=== PATIENT | female | born 1975 | race American Indian/Alaskan Native ===

== ENCOUNTER 2017-07-12 09:55 | Emergency (ER) | payer OTHER ==
[2017-07-12] MEDS ORDERED: ZOFRAN ODT PO ONE (11:10)
[2017-07-12] MEDS ORDERED: NACL 0.9% 1000 ML 1,000 ML IV ONE (11:10)
[2017-07-12] MEDS ORDERED: TORADOL IV ONE (11:10)
[2017-07-12] MEDS ORDERED: CATAPRES PO ONE (11:11)
--- NOTE | 2017-07-12 11:12 | Emergency Department Report ---
ED Shortness of Breath HPI - General Chief Complaint: Upper Respiratory Infection Stated Complaint: DAVID,COUGH Time Seen by Provider: 07/12/17 11:01 Source: patient, family Mode of arrival: Ambulatory Limitations: No Limitations - History of Present Illness Initial Comments: Patient presented to the emergency room with family member. She reports that she has been having ongoing cough and over the last couple days but says has been going on over the last 2 months. She said symptoms worsen over the last 2 days. She is complaining the chest pain and shortness of breath. Denies any vomiting but reports some nausea. Denies any swelling to legs. Patient is on Norplant control and recently traveled from [place]. Chest pain is 7 out of 10 a can and located to mid chest area. Her blood pressures elevated and she says she does not have a history of high blood pressure. Patient denies any medical history and reports she's had 3 in the past. She says she 's been taking [id number] medication with no relief of symptoms. She says that her significant other had bronchitis and maybe this where her symptoms are coming from but she says she doesn't know. Pain is worse with cough period. Denies any sore throat or headache. Denies any abdominal pain. Denies any urinary burning, frequency or urgency. Denies any back pain. MD Complaint: shortness of breath, cough, chest pain, pain with inspiration, anxiety Onset/Timin -: month(s) Severity: severe Pain Scale: 7 Quality: aching Consistency: intermittent Improves With: nothing Worsens With: coughing, inspiration Known History Of: other (none) Context: recent URI, recent travel, anxiety Associated Symptoms: chest pain, pain with inspiration, cough, nausea/vomiting Treatments Prior to Arrival: other ([id number] cough medicine) - Related Data Home Oxygen Therapy: No Previous Rx's Medication Instructions Recorded Last Taken Type ALBUTEROL Inhaler [ProAir HFA 2 puff IH QID PRN #1 inhalation 07/12/17 Unknown Rx Inhaler] Amoxicillin/K Clav Tab [Augmentin 1 tab PO Q12HR 10 Days #20 tab 07/12/17 Unknown Rx 875 mg] Naproxen [Naprosyn TAB] 500 mg PO BID PRN #12 tablet 07/12/17 Unknown Rx Ondansetron [Zofran TAB] 4 mg PO Q8HR PRN #12 tablet 07/12/17 Unknown Rx guaiFENesin/CODEINE [Robitussin AC] 5 ml PO Q8H PRN #75 ml 07/12/17 Unknown Rx methylPREDNISolone [Medrol Dose 4 mg PO QAM 6 Days #1 pack 07/12/17 Unknown Rx Teo] Allergies Allergy/AdvReac Type Severity Reaction Status Date / Time No Known Allergies Allergy Unverified 07/12/17 10:41 ED Review of Systems ROS: Stated complaint: DAVID,COUGH Other details as noted in HPI Comment: All other systems reviewed and negative Constitutional: no symptoms reported Eyes: denies: eye pain, eye discharge ENT: denies: ear pain, throat pain, dental pain, congestion Respiratory: cough, shortness of breath, SOB with exertion, SOB at rest. denies : orthopnea, stridor, wheezing Cardiovascular: chest pain. denies: palpitations, dyspnea on exertion, edema, syncope, paroxysmal nocturnal dyspnea Gastrointestinal: nausea. denies: abdominal pain, vomiting, diarrhea, constipation Genitourinary: denies: dysuria, hematuria Musculoskeletal: denies: back pain, joint swelling, arthralgia, myalgia Skin: denies: rash Neurological: denies: headache Psychiatric: anxiety (about health) ED Past Medical Hx - Past Medical History Previous Medical History?: No - Surgical History Past Surgical History?: Yes Additional Surgical History: c sect x 3 - Family History Family history: hypertension - Social History Smoking Status: Former Smoker Substance Use Type: Alcohol - Medications Home Medications: Home Medications Medication Instructions Recorded Confirmed Last Taken Type ALBUTEROL Inhaler [ProAir HFA 2 puff IH QID PRN #1 inhalation 07/12/17 Unknown Rx Inhaler] Amoxicillin/K Clav Tab [Augmentin 1 tab PO Q12HR 10 Days #20 tab 07/12/17 Unknown Rx 875 mg] Naproxen [Naprosyn TAB] 500 mg PO BID PRN #12 tablet 07/12/17 Unknown Rx Ondansetron [Zofran TAB] 4 mg PO Q8HR PRN #12 tablet 07/12/17 Unknown Rx guaiFENesin/CODEINE [Robitussin AC] 5 ml PO Q8H PRN #75 ml 07/12/17 Unknown Rx methylPREDNISolone [Medrol Dose 4 mg PO QAM 6 Days #1 pack 07/12/17 Unknown Rx Teo] ED Physical Exam - General Limitations: No Limitations General appearance: alert, in no apparent distress - Head Head exam: Present: atraumatic, normocephalic, normal inspection - Eye Eye exam: Present: normal appearance, PERRL, EOMI Pupils: Present: normal accommodation - ENT ENT exam: Present: normal exam, normal orophraynx, mucous membranes moist, TM's normal bilaterally, normal external ear exam - Neck Neck exam: Present: normal inspection, full ROM, other (no C-spine tenderness). Absent: tenderness, lymphadenopathy - Respiratory Respiratory exam: Present: normal lung sounds bilaterally. Absent: respiratory distress, chest wall tenderness, accessory muscle use - Cardiovascular Cardiovascular Exam: Present: regular rate, normal rhythm, normal heart sounds - GI/Abdominal GI/Abdominal exam: Present: soft, normal bowel sounds. Absent: distended, tenderness, guarding, rebound, rigid, organomegaly, mass, bruit, pulsatile mass , hernia - Extremities Exam Extremities exam: Present: normal inspection, full ROM, normal capillary refill , other (no clubbing, cyanosis or edema. + + Distal extremities and no neurovascular compromise.). Absent: tenderness, pedal edema, joint swelling, calf tenderness - Back Exam Back exam: Present: normal inspection, full ROM, other (ambulate without any difficulties). Absent: tenderness, CVA tenderness (R), CVA tenderness (L), muscle spasm, paraspinal tenderness, vertebral tenderness, rash noted - Neurological Exam Neurological exam: Present: alert, oriented X3, normal gait, reflexes normal. Absent: motor sensory deficit - Psychiatric Psychiatric exam: Present: normal affect, normal mood - Skin Skin exam: Present: warm, dry, intact, normal color. Absent: rash ED Course Vital Signs 07/12/17 07/12/17 10:41 13:51 Temperature 97.8 F 97.8 F Pulse Rate 94 H 82 Respiratory 20 16 Rate Blood Pressure 188/106 Blood Pressure 163/107 [Left] O2 Sat by Pulse 95 96 Oximetry - Reevaluation(s) Reevaluation #1: 07/12/17 13:01 Patient here with shortness of breath and chest pain with cough for several months. CBC stable, BMP stable except CO2 is elevated at 32, d-dimer elevated venous pH is within normal limits. Chest x-ray revealed patient with mild pulmonary venous congestion. Patient given 1 L normal saline, Toradol 30 mg IV , Zofran 4 mg ODT and Tylenol with codeine cough medicine 10 mL by mouth. Patient awaiting CT at bedtime to rule out PE. She is stable. Patient to receive nebulizer treatments. Patient also received clonidine 0.2 mg for elevated blood pressure without any history of high blood pressure. Reevaluation #2: 07/12/17 13:45 Patient is stable, pain is better. No shortness of breath at present. Salicylate and CTA results Reevaluation #3: 07/12/17 14:06 Patient received an hydralazine 20 mg IV and for recheck on blood pressure. Reevaluation #4: 07/12/17 14:55 Patient became very anxious prior to discharge and tearful. She was given Valium and reevaluate ED Medical Decision Making - Lab Data Result diagrams: 07/12/17 11:17 07/12/17 11:17 Vital Signs 07/12/17 07/12/17 10:41 13:51 Temperature 97.8 F 97.8 F Pulse Rate 94 H 82 Respiratory 20 16 Rate Blood Pressure 188/106 Blood Pressure 163/107 [Left] O2 Sat by Pulse 95 96 Oximetry - EKG Data -: EKG Interpreted by Me (EKG interpreted by attending physician) EKG shows normal: sinus rhythm (sinus rhythm at 93 beats per minutes) Rate: normal - EKG Data Interpretation: no acute changes, normal EKG - Radiology Data Radiology results: report reviewed Chest x-ray shows patient with mild pulmonary congestion/venous CTA chest reveals patient with pulmonary nodule. Prominent bilateral lower mediastinal lymph nodes may be reactive. No pulmonary embolus. No aortic aneurysm. No dissection. Treatment in but appears that this may represent atypical infective bronchiolitis: However, peripheral and septal thickening with groundglass opacities is atypical. Differential diagnosis includes lymphoma, leukemia, sarcoidosis or endocarditis - Medical Decision Making ED course: She is here with shortness of breath chest pain that she going on over the last couple days but reports cough and that's been chronic over the last couple months. Chest x-ray revealed mild pulmonary venous congestion. CT of the chest reveal patient with possibility of infective bronchiolitis but cannot rule out sarcoidosis, endocarditis, lymphoma/leukemia. She has prominent bilateral heel or mediastinal lymph nodes which may be reactive. No pulmonary embolism. Patient with stable labs except d-dimer was elevated which is why CTA was done. Diagnosis and treatment plan explained to patient along with follow-up and she voiced understanding. Patient was given nebulizer treatment in emergency room, Tylenol with codeine for cough, normal saline 1 L IV, Zofran 4 mg ODT, Toradol 30 mg IV for pain which helped her pain. Her blood pressure elevated 2 without any history of high blood pressure but patient said she felt anxious when she woke up this morning couldn't breathe. She was given clonidine 0.2 mg by mouth with still elevation in blood pressure therefore hydralazine 20 mg IV given and blood pressure is better. I discussed with her she will need to follow up with primary care physician but she does not have one but she does have access to primary care so I will refer her to outside medical and primary care outpatient medicine that's documentation spec today. I also discussed with her that she needs to follow-up with pulmonary doctor to evaluate and possible diagnostic testing for abnormal lung findings. Thus the patient is sometimes is difficult to get into primary care so I gave her flier for some outside [facility] along with phone number and address and told to call because it is easier to get in with them and they have family medicine and that she needs to take her blood pressure daily and call today or tomorrow to schedule an appointment to follow-up in 2-3 days and bring blood pressure readings with her for primary care to evaluate. She voiced understanding. Patient said that she is feeling better and discharged home with her significant other with prescription for Zofran, Augmentin to take yogurt, albuterol inhaler, Medrol Dosepak, guaifenesin with codeine and naproxen. Referred to laboratory section and radio section for details on radiology report and laboratory reports. Critical care attestation.: If time is entered above; I have spent that time in minutes in the direct care of this critically ill patient, excluding procedure time. ED Disposition Clinical Impression: Abnormal computed tomography angiography (CTA), Cough in adult, Chest pain of uncertain etiology, Shortness of breath, Elevated blood pressure reading without diagnosis of hypertension, Pulmonary nodule, Cardiomegaly Acute bronchitis Qualifiers: Bronchitis organism: other organism Qualified Code(s): J20.8 - Acute bronchitis due to other specified organisms Disposition: DC-01 TO HOME OR SELFCARE Is pt being admited?: No Does the pt Need Aspirin: No Condition: Stable Instructions: Acute Bronchitis (ED), Chest Pain (ED), Acute Cough (ED), Lymphadenopathy (ED), Pulmonary Nodules (ED), Hypertension (ED) Additional Instructions: Please keep a log of your blood pressure on a daily basis and take to primary care visit with here for evaluation. His CT scan showed abnormality as discussed and he will need to follow up with pulmonary doctor for further evaluation. Please refer to discharge instructions for referral to primary care doctor he can go to [facility] and/or Dr. Grzegorz Padilla who is primary care. Please follow-up with pcp that you can get appointment with for this week Follow-up with lens marker for further testing and on chest pain. Take antibiotic and other medication as prescribed Rest for the rest of the week and increasing fluid intake. Please do not take cough medicine while driving or operating heavy machinery as this medication causes drowsiness Take naproxen and as needed for pain. Prescriptions: ALBUTEROL Inhaler [ProAir HFA Inhaler] 2 puff IH QID PRN #1 inhalation PRN Reason: shortness of breath and cough Amoxicillin/K Clav Tab [Augmentin 875 mg] 1 tab PO Q12HR 10 Days #20 tab guaiFENesin/CODEINE [Robitussin AC] 5 ml PO Q8H PRN #75 ml PRN Reason: Cough methylPREDNISolone [Medrol Dose Teo] 4 mg PO QAM 6 Days #1 pack Naproxen [Naprosyn TAB] 500 mg PO BID PRN #12 tablet PRN Reason: Pain, Moderate (4-6) Ondansetron [Zofran TAB] 4 mg PO Q8HR PRN #12 tablet PRN Reason: Nausea And Vomiting Referrals: JERONIMO PADILLA MD [Staff Physician] - 2-3 Days [facility] [Outside] - 2-3 Days CASSANDRA RUBIN MD [Staff Physician] - 2-3 [facility] Days Forms: Accompanied Note, Work/School Release Form(ED)
[2017-07-12] MEDS ORDERED: TYLENOL/CODEINE PO ONE (11:22)
[2017-07-12 11:31] LABS: Basophils # (Auto) 0.1 K/mm3 (0.0-0.1); Basophils % (Auto) 0.6 % (0.0-1.8); Eosinophils # (Auto) 0.1 K/mm3 (0.0-0.4); Eosinophils % (Auto) 0.7 % (0.0-4.3); Hematocrit 42.8 % (30.3-42.9); Lymphocytes # (Auto) 2.6 K/mm3 (1.2-5.4); Lymphocytes % (Auto) 26.5 % (13.4-35.0); Mean Corpuscular HGB Conc 33 % (30-34); Mean Corpuscular Hemoglobin 30 pg (28-32); Mean Corpuscular Volume 92 fl (79-97); Monocytes # (Auto) 0.6 K/mm3 (0.0-0.8); Monocytes % (Auto) 6.6 % (0.0-7.3); Platelet Count 207 K/mm3 (140-440); Red Blood Count 4.66 M/mm3 (3.65-5.03); Red Cell Distribution Width 12.7 % (13.2-15.2)
[2017-07-12 12:06] LABS: Alanine Aminotransferase 17 units/L (7-56); BUN/Creatinine Ratio 10; Blood Urea Nitrogen 8 mg/dL (7-17); Calcium 9.8 mg/dL (8.4-10.2); Hemolysis Index 5
--- NOTE | 2017-07-12 12:08 | XRay Report ---
ROUTINE CHEST, TWO VIEWS: HISTORY: Shortness of breath. No comparison. Mild pulmonary venous congestion is identified. Heart size is at the upper limits of normal. The lungs are clear. No evidence for pneumonia, pleural effusion or pneumothorax. The bony structures are intact. IMPRESSION: Mild pulmonary venous congestion.
[2017-07-12 12:09] LABS: Bilirubin,Direct < 0.2 mg/dL (0-0.2)
[2017-07-12 13:03] LABS: Bilirubin,Urine NEG (Negative); Blood,Urine SM (Negative); Color,Urine Yellow (Yellow); Protein,Urine <15 mg/dL mg/dL (Negative); Urobilinogen,Urine < 2.0 mg/dL (<2.0); WBC,Urine < 1.0 /HPF (0.0-6.0)
[2017-07-12] MEDS ORDERED: XOPENEX IH ONE (13:14)
[2017-07-12] MEDS ORDERED: ATROVENT IH ONE (13:14)
--- NOTE | 2017-07-12 13:51 | Cat Scan Report ---
FINAL REPORT EXAM: CT ANGIO CHEST HISTORY: elevated d dimer with SOB and CP TECHNIQUE: CTA of chest with IV contrast. Coronal and sagittal and MIP reconstructed images provided. PRIORS: None currently available. FINDINGS: 5.7 pleural based pulmonary nodule along the right minor fissure on series 3:20. Scattered tree-in-bud infiltrates most particularly in the right upper lobe on series 3:75. Less notable tree-in-bud infiltrates in both lungs. Peripheral interseptal thickening with ground-glass opacities. No pneumothorax. No distinct consolidation. No effusion. No endobronchial lesions. No bronchial wall thickening. No bronchiectasis. No honeycombing. No centrilobular nodules. Main pulmonary arteries are unremarkable. No pulmonary embolus. No aortic aneurysm. No dissection. Major branch vessels are intact. Mild cardiomegaly. No pericardial effusion. Axillary regions are unremarkable. Prominent bilateral hilar and mediastinal lymph nodes which appears subcentimeter in short axis diameter. Residual or reactive thymic tissue in the substernal space. No substernal lesion identified. Images of the esophagus are unremarkable. No suspicious osseous lesions on this limited examination of the skeleton. Metastatic disease better evaluated with bone scan. IMPRESSION: Pulmonary nodule. Tree-in-bud opacities may represent atypical infective bronchiolitis; however, peripheral interseptal thickening with ground-glass opacities is atypical. Differential diagnosis includes lymphoma/leukemia, sarcoidosis, and endocarditis. Prominent bilateral hilar mediastinal lymph nodes may be reactive. No pulmonary embolus. No aortic aneurysm. No dissection.
[2017-07-12] MEDS ORDERED: APRESOLINE IV ONE (13:53)
[2017-07-12] MEDS ORDERED: VALIUM IV ONE (14:53)
[2017-07-12] MEDS ORDERED: ATIVAN IV ONE (15:18)
[2017-07-12 15:55] VITALS: BP 153/103
== END 2017-07-12 15:57 | disposition home or self-care (01) ==
LOC: ED 09:55
DX: J20.9 Acute bronchitis, unspecified (principal); I51.7 Cardiomegaly; R91.1 Solitary pulmonary nodule; Z87.891 Personal history of nicotine dependence
CPT/HCPCS: 36415; 71046; 71275; 80048; 80074; 81001; 82805; 84484; 84703; 85025; 85379; 93005; 93010; 94640; 96361; 96374; 96375; 99285; J0360; J1885; J2060; J3360; J7030; Q9967; Q0162

== ENCOUNTER 2017-10-04 11:11 | Emergency (ER) | payer SELFPAY ==
[2017-10-04 12:08] VITALS: BP 190/117
[2017-10-04 13:01] LABS: HCG Qualitative,Urine Negative (Negative)
--- NOTE | 2017-10-04 15:05 | XRay Report ---
CHEST 2 VIEWS INDICATION: Upper respiratory infection. COMPARISON: 07/12/2017 FINDINGS: PA and lateral chest radiographs again suggest mild cardiomegaly. Slightly prominent mei/possible pulmonary arterial hypertension with prominent bronchovascular markings centrally. No large pleural effusions or cephalization. Intact bones. CONCLUSION: Slight cardiomegaly and possible pulmonary arterial hypertension, as described. Other etiologies however, including sarcoidosis, again difficult to entirely exclude. Please correlate. Thank you for the opportunity to participate in this patient's care.
== END 2017-10-04 12:08 | disposition left against medical advice (07) ==
LOC: ED 11:11
DX: R07.0 Pain in throat (principal); R05 Cough; Z53.21 Procedure and treatment not carried out due to patient leaving prior to being seen by health care provider
CPT/HCPCS: 71046; 81025

== ENCOUNTER 2017-10-05 15:03 | Emergency (ER) | payer BC ==
[2017-10-05 17:31] VITALS: BP 183/113
[2017-10-05 18:02] LABS: Basophils % (Auto) 0.4 % (0.0-1.8); Eosinophils # (Auto) 0.1 K/mm3 (0.0-0.4); Eosinophils % (Auto) 0.7 % (0.0-4.3); Hematocrit 49.4 % (30.3-42.9); Hemoglobin 15.7 gm/dl (10.1-14.3); Lymphocytes # (Auto) 1.5 K/mm3 (1.2-5.4); Lymphocytes % (Auto) 19.9 % (13.4-35.0); Mean Corpuscular HGB Conc 32 % (30-34); Mean Corpuscular Hemoglobin 28 pg (28-32); Mean Corpuscular Volume 89 fl (79-97); Monocytes # (Auto) 0.6 K/mm3 (0.0-0.8); Platelet Count 214 K/mm3 (140-440); Red Blood Count 5.53 M/mm3 (3.65-5.03); Red Cell Distribution Width 13.6 % (13.2-15.2)
[2017-10-05 18:19] LABS: BUN/Creatinine Ratio 18; Blood Urea Nitrogen 11 mg/dL (7-17); Hemolysis Index 16
== END 2017-10-06 00:05 | disposition left against medical advice (07) ==
LOC: ED 15:03
DX: R07.9 Chest pain, unspecified (principal); R06.02 Shortness of breath; R50.9 Fever, unspecified; I10 Essential (primary) hypertension; Z87.891 Personal history of nicotine dependence; Z53.21 Procedure and treatment not carried out due to patient leaving prior to being seen by health care provider
CPT/HCPCS: 36415; 80048; 84484; 85025; 93005; 93010

== ENCOUNTER 2020-06-14 03:12 | Emergency (ER) | payer SELFPAY ==
[2020-06-14] MEDS ORDERED: IPRATROPIUM/ALBUTEROL SULFATE 3 ML AMPUL.NEB IH ONE (03:14)
[2020-06-14] MEDS ORDERED: dexAMETHasone 20 MG/5 ML VIAL IV ONE (03:16)
--- NOTE | 2020-06-14 03:21 | Event Note ---
ED Screening Note Date of service: 06/14/20 Time: 03:19 ED Screening Note: Patient is a 45-year-old female with history of asthma Who presents for cough shortness of breath with wheezing times today. States out of albuterol inhaler. Patient denies fevers or chills , there is no nausea vomiting This initial assessment/diagnostic orders/clinical plan/treatment(s) is/are subject to change based on patients health status, clinical progression and re- assessment by fellow clinical providers in the ED. Further treatment and workup at subsequent clinical providers discretion. Patient/guardian urged not to elope from the ED as their condition may be serious if not clinically assessed and man aged. Initial orders include: CBC, CMP UA,
[2020-06-14] MEDS: IPRATROPIUM/ALBUTEROL SULFATE 3 ML AMPUL.NEB IH ONE (03:23)
--- NOTE | 2020-06-14 03:48 | XRay Report ---
CHEST 2 VIEWS INDICATION / CLINICAL INFORMATION: asthma. COMPARISON: 10/04/2017 FINDINGS: SUPPORT DEVICES: None. HEART / MEDIASTINUM: Stable mild cardiomegaly. LUNGS / PLEURA: No significant pulmonary or pleural abnormality. No pneumothorax. ADDITIONAL FINDINGS: No significant additional findings. IMPRESSION: 1. No acute findings. 2. Stable mild cardiomegaly. Signer Name: Ean Rosales MD Signed: 06/14/2020 3:43 AM Workstation Name: [employer]
--- NOTE | 2020-06-14 05:05 | Emergency Department Report ---
ED General Adult HPI - General Chief complaint: Adult Asthma Stated complaint: ASTHMA ATTACK Time Seen by Provider: 06/14/20 04:53 Source: patient Mode of arrival: Ambulatory Limitations: No Limitations - History of Present Illness Initial comments: Patient is a 45-year-old female with history of asthma Who presents for cough shortness of breath with wheezing times today. States out of albuterol inhaler. Patient denies fevers or chills , there is no nausea vomiting Severity scale (0 -10): 0 - Related Data Previous Rx's Medication Instructions Recorded Last Taken Type Albuterol Mdi (or & Nicu Only) 2 puff IH QID PRN #1 inhalation 07/12/17 Unknown Rx [ProAir HFA Inhaler] Amoxicillin/K Clav Tab [Augmentin 1 tab PO Q12HR 10 Days #20 tab 07/12/17 Unknown Rx 875 mg] Naproxen [Naprosyn TAB] 500 mg PO BID PRN #12 tablet 07/12/17 Unknown Rx Ondansetron [Zofran TAB] 4 mg PO Q8HR PRN #12 tablet 07/12/17 Unknown Rx guaiFENesin/CODEINE [Robitussin AC] 5 ml PO Q8H PRN #75 ml 07/12/17 Unknown Rx methylPREDNISolone [Medrol Dose 4 mg PO QAM 6 Days #1 pack 07/12/17 Unknown Rx Toe] Albuterol Mdi (or & Nicu Only) 2 puff IH QID PRN #8.5 gram 06/14/20 Unknown Rx [ProAir HFA Inhaler] Azithromycin 500 mg PO DAILY #5 tablet 06/14/20 Unknown Rx Ibuprofen [Motrin 800 MG tab] 800 mg PO Q8HR PRN #30 tablet 06/14/20 Unknown Rx dexAMETHasone [Decadron] 4 mg PO BID 2 Days #4 tablet 06/14/20 Unknown Rx Allergies Allergy/AdvReac Type Severity Reaction Status Date / Time No Known Allergies Allergy Unverified 07/12/17 10:41 ED Review of Systems ROS: Stated complaint: ASTHMA ATTACK Other details as noted in HPI Constitutional: denies: chills, fever Eyes: denies: eye pain, eye discharge, vision change ENT: congestion Respiratory: cough, shortness of breath, wheezing Cardiovascular: denies: chest pain, palpitations Endocrine: no symptoms reported Gastrointestinal: denies: abdominal pain, nausea, vomiting, diarrhea Genitourinary: denies: urgency, dysuria, discharge Musculoskeletal: denies: back pain, joint swelling, arthralgia Skin: denies: rash, lesions Neurological: denies: headache, weakness, paresthesias Psychiatric: denies: anxiety, depression Hematological/Lymphatic: denies: easy bleeding, easy bruising ED Past Medical Hx - Past Medical History Previous Medical History?: Yes Hx Hypertension: Yes Hx Asthma: Yes Additional medical history: bronchitis. Chronic Cough - Surgical History Past Surgical History?: Yes Additional Surgical History: c sect x 3 - Social History Smoking Status: Never Smoker Substance Use Type: None - Medications Home Medications: Home Medications Medication Instructions Recorded Confirmed Last Taken Type Albuterol Mdi (or & Nicu Only) 2 puff IH QID PRN #1 inhalation 07/12/17 Unknown Rx [ProAir HFA Inhaler] Amoxicillin/K Clav Tab [Augmentin 1 tab PO Q12HR 10 Days #20 tab 07/12/17 Unknown Rx 875 mg] Naproxen [Naprosyn TAB] 500 mg PO BID PRN #12 tablet 07/12/17 Unknown Rx Ondansetron [Zofran TAB] 4 mg PO Q8HR PRN #12 tablet 07/12/17 Unknown Rx guaiFENesin/CODEINE [Robitussin AC] 5 ml PO Q8H PRN #75 ml 07/12/17 Unknown Rx methylPREDNISolone [Medrol Dose 4 mg PO QAM 6 Days #1 pack 07/12/17 Unknown Rx Teo] Albuterol Mdi (or & Nicu Only) 2 puff IH QID PRN #8.5 gram 06/14/20 Unknown Rx [ProAir HFA Inhaler] Azithromycin 500 mg PO DAILY #5 tablet 06/14/20 Unknown Rx Ibuprofen [Motrin 800 MG tab] 800 mg PO Q8HR PRN #30 tablet 06/14/20 Unknown Rx dexAMETHasone [Decadron] 4 mg PO BID 2 Days #4 tablet 06/14/20 Unknown Rx ED Physical Exam - General Limitations: No Limitations General appearance: alert, in no apparent distress - Head Head exam: Present: atraumatic, normocephalic - Eye Eye exam: Present: EOMI Pupils: Present: normal accommodation - ENT ENT exam: Present: normal orophraynx, mucous membranes moist, TM's normal bilaterally, normal external ear exam - Neck Neck exam: Present: normal inspection, full ROM. Absent: tenderness, lymphadenopathy, thyromegaly - Respiratory Respiratory exam: Present: normal lung sounds bilaterally, wheezes. Absent: respiratory distress, rales, rhonchi, stridor, chest wall tenderness - Cardiovascular Cardiovascular Exam: Present: regular rate, normal rhythm, normal heart sounds. Absent: systolic murmur, diastolic murmur, rubs, gallop - GI/Abdominal GI/Abdominal exam: Present: soft, normal bowel sounds. Absent: distended, tenderness - Rectal Rectal exam: Present: deferred - Extremities Exam Extremities exam: Present: normal inspection, full ROM. Absent: tenderness - Back Exam Back exam: Present: normal inspection, full ROM. Absent: tenderness - Neurological Exam Neurological exam: Present: alert, oriented X3, CN II-XII intact, normal gait - Psychiatric Psychiatric exam: Present: normal affect, normal mood - Skin Skin exam: Present: warm, dry, intact, normal color. Absent: rash ED Course Vital Signs 06/14/20 06/14/20 03:24 03:25 Temperature 98.3 F Pulse Rate 115 H Pulse Rate [ 100 H Bilateral Throughout] Respiratory 26 H Rate Respiratory 22 Rate [Bilateral Throughout] Blood Pressure 186/100 [Left] O2 Sat by Pulse 100 Oximetry ED Medical Decision Making - Radiology Data Radiology results: report reviewed, image reviewed no infiltrates no opacities, no acute findings , stable cardiomegally - Medical Decision Making X-ray negative for infiltrates no opacities no acute findings stable cardiomegaly, wheezing his wheezing is resolved with medications given in ED. Patient ambulated to ED without increased symptoms and no wheezing at this time. Plan DC to home with prescriptions including antibiotics steroids albuterol inhaler , patient will follow-up with PCP in 2 to 3 days. Patient will return to ED should symptoms worsen. Patient verbalized agreement and understanding with discharge plan. Patient will be DC'd home in stable condition at this time. Critical care attestation.: If time is entered above; I have spent that time in minutes in the direct care of this critically ill patient, excluding procedure time. ED Disposition Clinical Impression: Asthma Qualifiers: Asthma severity: moderate Asthma persistence: unspecified Asthma complication type: with acute exacerbation Qualified Code(s): J45.901 - Unspecified asthma with (acute) exacerbation Disposition: DC-01 TO HOME OR SELFCARE Is pt being admited?: No Does the pt Need Aspirin: No Condition: Stable Instructions: Asthma (ED) Prescriptions: Azithromycin 500 mg PO DAILY #5 tablet dexAMETHasone [Decadron] 4 mg PO BID 2 Days #4 tablet Ibuprofen [Motrin 800 MG tab] 800 mg PO Q8HR PRN #30 tablet PRN Reason: pain Albuterol Mdi (or & Nicu Only) [ProAir HFA Inhaler] 2 puff IH QID PRN #8.5 gram PRN Reason: Shortness Of Breath Referrals: JH COX MD [Staff Physician] - 3-5 Days Forms: Work/School Release Form(ED)
[2020-06-14 05:34] VITALS: BP 138/88
== END 2020-06-14 05:34 | disposition home or self-care (01) ==
LOC: ED 03:12
DX: J45.909 Unspecified asthma, uncomplicated (principal); I10 Essential (primary) hypertension; Z79.899 Other long term (current) drug therapy
CPT/HCPCS: 71046; 94640; 96374; 99283; J1100; 94644

== ENCOUNTER 2020-10-04 10:11 | Emergency (ER) | payer SELFPAY ==
[2020-10-04] MEDS ORDERED: hydrALAZINE 25 MG TAB PO ONE (11:00)
--- NOTE | 2020-10-04 11:46 | XRay Report ---
CHEST 2 VIEWS INDICATION / CLINICAL INFORMATION: Chest Pain. COMPARISON: 06/14/2020 FINDINGS: SUPPORT DEVICES: None. HEART / MEDIASTINUM: Stable mild cardiomegaly. LUNGS / PLEURA: No significant pulmonary or pleural abnormality. No pneumothorax. ADDITIONAL FINDINGS: No significant additional findings. IMPRESSION: 1. No acute findings. Signer Name: Ean Rosales MD Signed: 10/04/2020 11:42 AM Workstation Name: [id number]
--- NOTE | 2020-10-04 11:54 | Emergency Department Report ---
ED Shortness of Breath HPI - General Chief Complaint: Adult Asthma Stated Complaint: ASTHMA Time Seen by Provider: 10/04/20 10:39 Source: patient Mode of arrival: Ambulatory Limitations: No Limitations - History of Present Illness Initial Comments: Patient is a 45-year-old female presents emergency room with complaints of shortness of breath for the last 2 weeks. She states that she has orthopnea and exertional shortness of breath. Patient states that she traveled to [place] 3 weeks ago and drove approximately 9 hours. She states that she has a history of asthma and uses an albuterol inhaler. She states that she has an appointment with a new multi disciplined language analyst in 3 weeks. She states she has an occasional dry cough. She denies any fever, nausea, vomiting, diarrhea, leg swelling. She states that she does feel chest pressure and feels like someone is sitting/squeezing her chest. She also has a history of bronchitis. She is a former smoker. Patient states that she has been told she has elevated blood pressure in the past but is not on any blood pressure medication. No allergies to medications. - Related Data Previous Rx's Medication Instructions Recorded Last Taken Type Albuterol Mdi (or & Nicu Only) 2 puff IH QID PRN #1 inhalation 07/12/17 Unknown Rx [ProAir HFA Inhaler] Amoxicillin/K Clav Tab [Augmentin 1 tab PO Q12HR 10 Days #20 tab 07/12/17 Unknown Rx 875 mg] Naproxen [Naprosyn TAB] 500 mg PO BID PRN #12 tablet 07/12/17 Unknown Rx Ondansetron [Zofran TAB] 4 mg PO Q8HR PRN #12 tablet 07/12/17 Unknown Rx guaiFENesin/CODEINE [Robitussin AC] 5 ml PO Q8H PRN #75 ml 07/12/17 Unknown Rx methylPREDNISolone [Medrol Dose 4 mg PO QAM 6 Days #1 pack 07/12/17 Unknown Rx Teo] Albuterol Mdi (or & Nicu Only) 2 puff IH QID PRN #8.5 gram 06/14/20 Unknown Rx [ProAir HFA Inhaler] Azithromycin 500 mg PO DAILY #5 tablet 06/14/20 Unknown Rx Ibuprofen [Motrin 800 MG tab] 800 mg PO Q8HR PRN #30 tablet 06/14/20 Unknown Rx dexAMETHasone [Decadron] 4 mg PO BID 2 Days #4 tablet 06/14/20 Unknown Rx Albuterol Sulfate [Proventil Hfa] 1 - 2 puff IH TID PRN #1 hfa.aer.ad 10/04/20 Unknown Rx Azithromycin [Zithromax TAB] 250 mg PO QDAY 5 Days #6 tablet 10/04/20 Unknown Rx Benzonatate [Tessalon Perles] 100 mg PO Q8HR PRN #12 capsule 10/04/20 Unknown Rx Prednisone [predniSONE 10 mg 10 mg PO .TAPER #1 tab.ds.pk 10/04/20 Unknown Rx (6-Day Pack, 21 Tabs)] Allergies Allergy/AdvReac Type Severity Reaction Status Date / Time No Known Allergies Allergy Unverified 07/12/17 10:41 ED Review of Systems ROS: Stated complaint: ASTHMA Other details as noted in HPI Comment: All other systems reviewed and negative ED Past Medical Hx - Past Medical History Previous Medical History?: Yes Hx Hypertension: Yes Hx Asthma: Yes Additional medical history: bronchitis. Chronic Cough - Surgical History Past Surgical History?: Yes Additional Surgical History: c sect x 3 - Social History Smoking Status: Never Smoker Substance Use Type: None - Medications Home Medications: Home Medications Medication Instructions Recorded Confirmed Last Taken Type Albuterol Mdi (or & Nicu Only) 2 puff IH QID PRN #1 inhalation 07/12/17 Unknown Rx [ProAir HFA Inhaler] Amoxicillin/K Clav Tab [Augmentin 1 tab PO Q12HR 10 Days #20 tab 07/12/17 Unknown Rx 875 mg] Naproxen [Naprosyn TAB] 500 mg PO BID PRN #12 tablet 07/12/17 Unknown Rx Ondansetron [Zofran TAB] 4 mg PO Q8HR PRN #12 tablet 07/12/17 Unknown Rx guaiFENesin/CODEINE [Robitussin AC] 5 ml PO Q8H PRN #75 ml 07/12/17 Unknown Rx methylPREDNISolone [Medrol Dose 4 mg PO QAM 6 Days #1 pack 07/12/17 Unknown Rx Teo] Albuterol Mdi (or & Nicu Only) 2 puff IH QID PRN #8.5 gram 06/14/20 Unknown Rx [ProAir HFA Inhaler] Azithromycin 500 mg PO DAILY #5 tablet 06/14/20 Unknown Rx Ibuprofen [Motrin 800 MG tab] 800 mg PO Q8HR PRN #30 tablet 06/14/20 Unknown Rx dexAMETHasone [Decadron] 4 mg PO BID 2 Days #4 tablet 06/14/20 Unknown Rx Albuterol Sulfate [Proventil Hfa] 1 - 2 puff IH TID PRN #1 hfa.aer.ad 10/04/20 Unknown Rx Azithromycin [Zithromax TAB] 250 mg PO QDAY 5 Days #6 tablet 10/04/20 Unknown Rx Benzonatate [Tessalon Perles] 100 mg PO Q8HR PRN #12 capsule 10/04/20 Unknown Rx Prednisone [predniSONE 10 mg 10 mg PO .TAPER #1 tab.ds.pk 10/04/20 Unknown Rx (6-Day Pack, 21 Tabs)] ED Physical Exam - General Limitations: No Limitations General appearance: alert, in no apparent distress - Head Head exam: Present: atraumatic, normocephalic - Eye Eye exam: Present: normal appearance - ENT ENT exam: Present: mucous membranes moist - Respiratory Respiratory exam: Present: normal lung sounds bilaterally, rales (fine crackles bilaterally). Absent: respiratory distress, wheezes, rhonchi, stridor, chest wall tenderness, accessory muscle use, decreased breath sounds, prolonged expiratory - Cardiovascular Cardiovascular Exam: Present: regular rate, normal rhythm, normal heart sounds. Absent: systolic murmur, diastolic murmur, rubs, gallop - Neurological Exam Neurological exam: Present: alert, oriented X3 - Psychiatric Psychiatric exam: Present: normal affect, normal mood - Skin Skin exam: Present: warm, dry, intact ED Course Vital Signs 10/04/20 10/04/20 10/04/20 10:18 11:41 16:27 Temperature 98.2 F 98.2 F Pulse Rate 106 H 95 H 86 Respiratory 20 16 Rate Blood Pressure 200/121 172/106 Blood Pressure 164/88 [Left] O2 Sat by Pulse 96 99 Oximetry ED Medical Decision Making - Lab Data Result diagrams: 10/04/20 11:45 10/04/20 11:45 Lab Results 10/04/20 10/04/20 10/04/20 Range/Units 11:45 11:45 11:45 WBC 9.0 (4.5-11.0) K/mm3 RBC 5.08 H (3.65-5.03) M/mm3 Hgb 15.1 H (10.1-14.3) gm/dl Hct 46.2 H (30.3-42.9) % MCV 91 (79-97) fl MCH 30 (28-32) pg MCHC 33 (30-34) % RDW 13.3 (13.2-15.2) % Plt Count 217 (140-440) K/mm3 Lymph % (Auto) 23.2 (13.4-35.0) % [place] % (Auto) 6.1 (0.0-7.3) % Eos % (Auto) 0.7 (0.0-4.3) % Baso % (Auto) 0.7 (0.0-1.8) % Lymph # (Auto) 2.1 (1.2-5.4) K/mm3 [place] # (Auto) 0.6 (0.0-0.8) K/mm3 Eos # (Auto) 0.1 (0.0-0.4) K/mm3 Baso # (Auto) 0.1 (0.0-0.1) K/mm3 Seg Neutrophils % 69.3 (40.0-70.0) % Seg Neutrophils # 6.3 (1.8-7.7) K/mm3 PT 12.9 (12.2-14.9) Sec. INR 0.91 (0.87-1.13) APTT 28.1 (24.2-36.6) Sec. D-Dimer 477.43 H (0-234) ng/mlDDU Sodium 138 (137-145) mmol/L Potassium 4.0 (3.6-5.0) mmol/L Chloride 106.1 (98-107) mmol/L Carbon Dioxide 20 L (22-30) mmol/L Anion Gap 16 mmol/L BUN 8 (7-17) mg/dL Creatinine 0.6 (0.6-1.2) mg/dL Estimated GFR > 60 ml/min BUN/Creatinine Ratio 13 % Glucose 89 (65-100) mg/dL Calcium 9.5 (8.4-10.2) mg/dL Total Bilirubin 0.80 (0.1-1.2) mg/dL AST 26 (5-40) units/L ALT 25 (7-56) units/L Alkaline Phosphatase 73 (35-129) units/L Troponin T < 0.010 (0.00-0.029) ng/mL NT-Pro-B Natriuret Pep 683.8 H (0-450) pg/mL Total Protein 7.4 (6.3-8.2) g/dL Albumin 4.0 (3.9-5) g/dL Albumin/Globulin Ratio 1.2 % HCG, Qual (Negative) 10/04/20 Range/Units 11:45 WBC (4.5-11.0) K/mm3 RBC (3.65-5.03) M/mm3 Hgb (10.1-14.3) gm/dl Hct (30.3-42.9) % MCV (79-97) fl MCH (28-32) pg MCHC (30-34) % RDW (13.2-15.2) % Plt Count (140-440) K/mm3 Lymph % (Auto) (13.4-35.0) % [place] % (Auto) (0.0-7.3) % Eos % (Auto) (0.0-4.3) % Baso % (Auto) (0.0-1.8) % Lymph # (Auto) (1.2-5.4) K/mm3 [place] # (Auto) (0.0-0.8) K/mm3 Eos # (Auto) (0.0-0.4) K/mm3 Baso # (Auto) (0.0-0.1) K/mm3 Seg Neutrophils % (40.0-70.0) % Seg Neutrophils # (1.8-7.7) K/mm3 PT (12.2-14.9) Sec. INR (0.87-1.13) APTT (24.2-36.6) Sec. D-Dimer (0-234) ng/mlDDU Sodium (137-145) mmol/L Potassium (3.6-5.0) mmol/L Chloride (98-107) mmol/L Carbon Dioxide (22-30) mmol/L Anion Gap mmol/L BUN (7-17) mg/dL Creatinine (0.6-1.2) mg/dL Estimated GFR ml/min BUN/Creatinine Ratio % Glucose (65-100) mg/dL Calcium (8.4-10.2) mg/dL Total Bilirubin (0.1-1.2) mg/dL AST (5-40) units/L ALT (7-56) units/L Alkaline Phosphatase (35-129) units/L Troponin T (0.00-0.029) ng/mL NT-Pro-B Natriuret Pep (0-450) pg/mL Total Protein (6.3-8.2) g/dL Albumin (3.9-5) g/dL Albumin/Globulin Ratio % HCG, Qual Negative (Negative) Vital Signs 10/04/20 10/04/20 10/04/20 10:18 11:41 16:27 Temperature 98.2 F 98.2 F Pulse Rate 106 H 95 H 86 Respiratory 20 16 Rate Blood Pressure 200/121 172/106 Blood Pressure 164/88 [Left] O2 Sat by Pulse 96 99 Oximetry - EKG Data EKG shows normal: sinus rhythm, axis, intervals, QRS complexes Rate: tachycardia (103) - EKG Data 10/04/20 15:14 T wave inversion lateral leads No STEMI - Radiology Data Radiology results: report reviewed Ordering Physician: TRACEE PEREA Date of Service: 10/04/20 Procedure(s): XR chest routine 2V Accession Number(s): [id number] cc: TRACEE PEREA Fluoro Time In Minutes: CHEST 2 VIEWS INDICATION / CLINICAL INFORMATION: Chest Pain. COMPARISON: 06/14/2020 FINDINGS: SUPPORT DEVICES: None. HEART / MEDIASTINUM: Stable mild cardiomegaly. LUNGS / PLEURA: No significant pulmonary or pleural abnormality. No p neumothorax. ADDITIONAL FINDINGS: No significant additional findings. IMPRESSION: 1. No acute findings. Signer Name: Ean Rosales MD Signed: 10/04/2020 11:42 AM Workstation Name: [id number] Transcribed By: JAXON Dictated By: Ean Rosales MD Electronically Authenticated By: Ean Rosales MD Signed Date/Time: 10/04/20 1142 DD/ 1141 TD/TT: Print Ordering Physician: TRACEE PREEA Date of Service: 10/04/20 Procedure(s): CT angio chest Accession Number(s): [id number] cc: TRACEE PEREA CTA CHEST WITH IV CONTRAST INDICATION: Chest pain, shortness of breath, elevated d-dimer. TECHNIQUE: Axial CT images were obtained through the chest after injection of 100 mL Omnipaque 350 IV contrast. 3 plane MIP reconstructions were produced. All CT scans at this location are performed using CT dose reduction for ALARA by means of automated exposure control. COMPARISON: None available. FINDINGS: Pulmonary Arteries: No pulmonary emboli. Lungs: There are a few patchy areas of groundglass opacity in the right middle lobe, right lower lobe, and left upper lobe. There is mild emphysema. Trachea and Bronchi: No significant abnormality. Heart and Pericardium: No significant abnormality. Vasculature: No significant abnormality. Lymphatics: No lymphadenopathy. Additional Findings: None. Upper Abdomen: No acute findings. Skeletal Structures: No acute findings or aggressive bone lesions. IMPRESSION: 1. No CT evidence for pulmonary embolism. 2. Patchy areas of groundglass opacity in both lungs likely indicates multifocal infectious or inflammatory process. Signer Name: Ean Rosales MD Signed: 10/04/2020 2:24 PM Workstation Name: [id number] Transcribed By: JAXON Dictated By: Ean Rosales MD Electronically Authenticated By: Ean Rosales MD Signed Date/Time: 10/04/20 142 DD/ 21 TD/TT: Print Cancel - Medical Decision Making Patient is a 45-year-old female presents emergency room with complaints of shortness of breath for the last 2 weeks. She states that she has orthopnea and exertional shortness of breath. Patient states that she traveled to [place] 3 weeks ago and drove approximately 9 hours. She states that she has a history of asthma and uses an albuterol inhaler. She states that she has an appointment with a new multi disciplined language analyst in 3 weeks. She states she has an occasional dry cough. She denies any fever, nausea, vomiting, diarrhea, leg swelling. She states that she does feel chest pressure and feels like someone is sitting/squeezing her chest. She also has a history of bronchitis. She is a former smoker. Patient states that she has been told she has elevated blood pressure in the past but is not on any blood pressure medication. No allergies to medications. Initial vitals with tachycardia and significantly elevated blood pressure which improved upon repeat. On exam patient has fine crackles bilaterally. Labs significant for elevated D-dimer and elevated BNP. EKG shows nonspecific T wave inversion, no STEMI. Troponin is negative. CXR: 1. No acute findings. CTA chest: 1. No CT evidence for pulmonary embolism. 2. Patchy areas of groundglass opacity in both lungs likely indicates multifocal infectious or inflammatory process. CT findings could be related to Covid versus COPD versus mild CHF. Patient is in no acute distress, she has no hypoxia. Patient is feeling much better upon reexamination. Discussed all results with patient and answer questions. Discussed the importance of pulmonology, primary care, cardiology follow-up. Discussed return precautions with patient. Discussed case with Dr. Alejandra Car, ER attending who advised to place patient on steroids, antibiotics, and blood pressure medication and discharge with outpatient follow up. Advised patient Please take medication as prescribed. Please keep your appointment with your multi disciplined language analyst. Please follow-up with a primary care doctor. Follow-up with a customer operations manager. Return to emergency room for new or worsening symptoms. Critical care attestation.: If time is entered above; I have spent that time in minutes in the direct care of this critically ill patient, excluding procedure time. ED Disposition Clinical Impression: SOB (shortness of breath), Opacities of both lungs present on chest x-ray, Elevated brain natriuretic peptide (BNP) level, Hypertensive urgency Emphysema of lung Qualifiers: Emphysema type: unspecified Qualified Code(s): J43.9 - Emphysema, unspecified Disposition: DC-01 TO HOME OR SELFCARE Is pt being admited?: No Does the pt Need Aspirin: No Condition: Stable Instructions: Chronic Obstructive Pulmonary Disease (ED) Additional Instructions: Please take medication as prescribed. Please keep your appointment with your multi disciplined language analyst. Please follow-up with a primary care doctor. Follow-up with a c ardiologist. Return to emergency room for new or worsening symptoms. Prescriptions: Prednisone [predniSONE 10 mg (6-Day Pack, 21 Tabs)] 10 mg PO .TAPER #1 tab.ds.pk Albuterol Sulfate [Proventil Hfa] 1 - 2 puff IH TID PRN #1 hfa.aer.ad PRN Reason: shortness of breath/wheezing Benzonatate [Tessalon Perles] 100 mg PO Q8HR PRN #12 capsule PRN Reason: cough Azithromycin [Zithromax TAB] 250 mg PO QDAY 5 Days #6 tablet Referrals: AYLEEN HAMLIN MD [Staff Physician] - 2-3 Days [facility] [Provider Group] - 2-3 Days JH COX MD [Staff Physician] - 2-3 Days SUBHASH BUTLER [Staff Physician] - 2-3 Days (cardiology) Time of Disposition: 15:06 Print Language: TUVALU[place]
[2020-10-04 12:15] LABS: Basophils # (Auto) 0.1 K/mm3 (0.0-0.1); Basophils % (Auto) 0.7 % (0.0-1.8); Eosinophils # (Auto) 0.1 K/mm3 (0.0-0.4); Eosinophils % (Auto) 0.7 % (0.0-4.3); Hematocrit 46.2 % (30.3-42.9); Hemoglobin 15.1 gm/dl (10.1-14.3); Lymphocytes # (Auto) 2.1 K/mm3 (1.2-5.4); Lymphocytes % (Auto) 23.2 % (13.4-35.0); Mean Corpuscular HGB Conc 33 % (30-34); Mean Corpuscular Volume 91 fl (79-97); Monocytes # (Auto) 0.6 K/mm3 (0.0-0.8); Monocytes % (Auto) 6.1 % (0.0-7.3); Platelet Count 217 K/mm3 (140-440); Red Blood Count 5.08 M/mm3 (3.65-5.03); Red Cell Distribution Width 13.3 % (13.2-15.2)
[2020-10-04 12:23] LABS: INR 0.91 (0.87-1.13)
[2020-10-04 12:24] LABS: Partial Thromboplastin Time 28.1 Sec. (24.2-36.6)
[2020-10-04 12:42] LABS: Alanine Aminotransferase 25 units/L (7-56); Blood Urea Nitrogen 8 mg/dL (7-17); Calcium 9.5 mg/dL (8.4-10.2); Hemolysis Index 29
[2020-10-04 12:43] LABS: BUN/Creatinine Ratio 13
--- NOTE | 2020-10-04 14:28 | Cat Scan Report ---
CTA CHEST WITH IV CONTRAST INDICATION: Chest pain, shortness of breath, elevated d-dimer. TECHNIQUE: Axial CT images were obtained through the chest after injection of 100 mL Omnipaque 350 IV contrast. 3 plane MIP reconstructions were produced. All CT scans at this location are performed using CT dose reduction for ALARA by means of automated exposure control. COMPARISON: None available. FINDINGS: Pulmonary Arteries: No pulmonary emboli. Lungs: There are a few patchy areas of groundglass opacity in the right middle lobe, right lower lobe , and left upper lobe. There is mild emphysema. Trachea and Bronchi: No significant abnormality. Heart and Pericardium: No significant abnormality. Vasculature: No significant abnormality. Lymphatics: No lymphadenopathy. Additional Findings: None. Upper Abdomen: No acute findings. Skeletal Structures: No acute findings or aggressive bone lesions. IMPRESSION: 1. No CT evidence for pulmonary embolism. 2. Patchy areas of groundglass opacity in both lungs likely indicates multifocal infectious or inflam matory process. Signer Name: Ean Rosales MD Signed: 10/04/2020 2:24 PM Workstation Name: [id number]
[2020-10-04] MEDS ORDERED: FUROSEMIDE 20 MG TAB PO ONE (14:33)
[2020-10-04] MEDS ORDERED: POTASSIUM CHLORIDE ER 20 MEQ TAB PO ONE (15:08)
[2020-10-04 16:29] VITALS: BP 164/88
--- NOTE | 2020-10-09 14:17 | Electrocardiograph Report ---
[facility] Test Date: 2020-10-04 Test Time: 13:14:58 Pat Name: HARESH MCKENZIE Department: Room: Gender: F [employer] Supervisor: MARTÍN : 1975 Requested By: DWAINE LOVETT Order Number: [id number] Reading MD: Zachariah Sarmiento Measurements Intervals [place] Rate: 103 P: 141 OR: 159 QRS: 16 QRSD: 86 T: -58 QT: 344 QTc: 452 Interpretive Statements Sinus tachycardia Probable left atrial enlargement Nonspecific T abnormalities, lateral leads No previous ECG available for comparison Electronically Signed On 10-09-2020 14:17:09 EDT by Zachariah Sarmiento
== END 2020-10-04 16:00 | disposition home or self-care (01) ==
LOC: ED 10:11
DX: J43.9 Emphysema, unspecified (principal); I16.0 Hypertensive urgency; R06.02 Shortness of breath; R91.8 Other nonspecific abnormal finding of lung field; R79.89 Other specified abnormal findings of blood chemistry; I10 Essential (primary) hypertension; Z79.899 Other long term (current) drug therapy; Z98.890 Other specified postprocedural states
CPT/HCPCS: 36415; 71046; 71275; 80053; 83880; 84484; 84703; 85025; 85379; 85610; 85730; 99284; Q9967; 93005

== ENCOUNTER 2021-09-06 18:30 | Emergency (ER) | payer SELFPAY ==
[2021-09-06] MEDS ORDERED: ALBUTEROL 2.5 MG/3 ML NEBU IH ONE ×3 (18:45→18:59)
[2021-09-06] MEDS ORDERED: IPRATROPIUM 0.02% NEBU 2.5 ML IH ONE ×3 (18:45→18:59)
[2021-09-06] MEDS ORDERED: methylPREDNISolone Sod Succinate 125 MG/2 ML INJ IV ONE (18:59)
--- NOTE | 2021-09-06 19:57 | XRay Report ---
XR chest routine 2V INDICATION / CLINICAL INFORMATION: COUGH, ASTHMA. COMPARISON: Radiograph from 10/04/2020. FINDINGS: SUPPORT DEVICES: None. HEART /PULMONARY VASCULATURE: Heart is enlarged. Pulmonary vasculature is mildly congested. LUNGS / PLEURA: There are increased diffuse interstitial opacities throughout the lungs. No focal air space consolidation. No sizable pleural effusion. No pneumothorax. ADDITIONAL FINDINGS: No significant additional findings. IMPRESSION: Diffuse increased interstitial opacities throughout the lungs, may reflect edema or interstitial infi ltrate/pneumonitis. No focal consolidative pneumonia. Signer Name: Anthony Garza MD Signed: 09/06/2021 7:53 PM Workstation Name: [id number]
[2021-09-06 20:23] VITALS: BP 133/76
[2021-09-06] MEDS ORDERED: LIDOCAINE-MPF (1%) 10 MG/1 ML VIAL 5 ML INFILTRATI ONE (20:26)
[2021-09-06] MEDS ORDERED: AZITHROMYCIN 250 MG TAB PO ONE (20:26)
--- NOTE | 2021-09-06 20:31 | Emergency Department Report ---
ED Shortness of Breath HPI - General Chief Complaint: Adult Asthma Stated Complaint: DAVID Source: patient Mode of arrival: Ambulatory Limitations: No Limitations - History of Present Illness Initial Comments: Patient is a 46-year-old -[place] female with a history of asthma who presents to the ED with complaint of acute onset persistent nasal and sinus congestion, shortness of breath, wheezing, chest tightness, for the last 2 days despite using albuterol inhaler and nebulizers at home. Patient states that her fianc was diagnosed with pneumonia a few days ago. Patient denies dizziness, syncope, fever, chills, sore throat, chest pain, abdominal pain, nausea and vomiting, headache, diarrhea, dysuria, urinary frequency and urgency or seizures. MD Complaint: shortness of breath, cough, "asthma attack" -: Sudden, days(s) (2) Severity: moderate Pain Scale: 6 Quality: aching Consistency: constant, intermittent - Related Data Previous Rx's Medication Instructions Recorded Last Taken Type Amoxicillin/K Clav Tab [Augmentin 1 tab PO Q12HR 10 Days #20 tab 07/12/17 Unknown Rx 875 mg] Naproxen [Naprosyn TAB] 500 mg PO BID PRN #12 tablet 07/12/17 Unknown Rx Ondansetron [Zofran TAB] 4 mg PO Q8HR PRN #12 tablet 07/12/17 Unknown Rx guaiFENesin/CODEINE [Robitussin AC] 5 ml PO Q8H PRN #75 ml 07/12/17 Unknown Rx methylPREDNISolone [Medrol Dose 4 mg PO QAM 6 Days #1 pack 07/12/17 Unknown Rx Teo] Albuterol Mdi (or & Nicu Only) 2 puff IH QID PRN #8.5 gram 06/14/20 Unknown Rx [ProAir HFA Inhaler] Azithromycin 500 mg PO DAILY #5 tablet 06/14/20 Unknown Rx dexAMETHasone [Decadron] 4 mg PO BID 2 Days #4 tablet 06/14/20 Unknown Rx Albuterol Sulfate [Proventil Hfa] 1 - 2 puff IH TID PRN #1 hfa.aer.ad 10/04/20 Unknown Rx Azithromycin [Zithromax TAB] 250 mg PO QDAY 5 Days #6 tablet 10/04/20 Unknown Rx ALBUTEROL NEB's [Proventil 0.083% 3 ml IH Q6H PRN #75 ml 09/06/21 Unknown Rx NEBS] Albuterol Mdi (or & Nicu Only) 2 puff IH QID PRN #1 inhalation 09/06/21 Unknown Rx [ProAir HFA Inhaler] Benzonatate [Tessalon Perles] 100 mg PO Q8HR PRN #30 capsule 09/06/21 Unknown Rx Cetirizine HCl [Zyrtec 10mg tab] 10 mg PO DAILY #30 tab 09/06/21 Unknown Rx Ibuprofen [Motrin 800 MG tab] 800 mg PO Q8HR PRN #30 tablet 09/06/21 Unknown Rx Prednisone [predniSONE 10 mg 10 mg PO .TAPER #1 tab.ds.pk 09/06/21 Unknown Rx (6-Day Pack, 21 Tabs)] levoFLOXacin [Levaquin] 750 mg PO QDAY #10 tablet 09/06/21 Unknown Rx Allergies Allergy/AdvReac Type Severity Reaction Status Date / Time No Known Allergies Allergy Unverified 07/12/17 10:41 ED Review of Systems ROS: Stated complaint: DAVID Other details as noted in HPI ED Past Medical Hx - Past Medical History Hx Hypertension: Yes Hx Asthma: Yes Additional medical history: bronchitis. Chronic Cough - Surgical History Additional Surgical History: c sect x 3 - Social History Smoking Status: Unknown if ever smoked Substance Use Type: None - Medications Home Medications: Home Medications Medication Instructions Recorded Confirmed Last Taken Type Amoxicillin/K Clav Tab [Augmentin 1 tab PO Q12HR 10 Days #20 tab 07/12/17 Unknown Rx 875 mg] Naproxen [Naprosyn TAB] 500 mg PO BID PRN #12 tablet 07/12/17 Unknown Rx Ondansetron [Zofran TAB] 4 mg PO Q8HR PRN #12 tablet 07/12/17 Unknown Rx guaiFENesin/CODEINE [Robitussin AC] 5 ml PO Q8H PRN #75 ml 07/12/17 Unknown Rx methylPREDNISolone [Medrol Dose 4 mg PO QAM 6 Days #1 pack 07/12/17 Unknown Rx Teo] Albuterol Mdi (or & Nicu Only) 2 puff IH QID PRN #8.5 gram 06/14/20 Unknown Rx [ProAir HFA Inhaler] Azithromycin 500 mg PO DAILY #5 tablet 06/14/20 Unknown Rx dexAMETHasone [Decadron] 4 mg PO BID 2 Days #4 tablet 06/14/20 Unknown Rx Albuterol Sulfate [Proventil Hfa] 1 - 2 puff IH TID PRN #1 hfa.aer.ad 10/04/20 Unknown Rx Azithromycin [Zithromax TAB] 250 mg PO QDAY 5 Days #6 tablet 10/04/20 Unknown Rx ALBUTEROL NEB's [Proventil 0.083% 3 ml IH Q6H PRN #75 ml 09/06/21 Unknown Rx NEBS] Albuterol Mdi (or & Nicu Only) 2 puff IH QID PRN #1 inhalation 09/06/21 Unknown Rx [ProAir HFA Inhaler] Benzonatate [Tessalon Perles] 100 mg PO Q8HR PRN #30 capsule 09/06/21 Unknown Rx Cetirizine HCl [Zyrtec 10mg tab] 10 mg PO DAILY #30 tab 09/06/21 Unknown Rx Ibuprofen [Motrin 800 MG tab] 800 mg PO Q8HR PRN #30 tablet 09/06/21 Unknown Rx Prednisone [predniSONE 10 mg 10 mg PO .TAPER #1 tab.ds.pk 09/06/21 Unknown Rx (6-Day Pack, 21 Tabs)] levoFLOXacin [Levaquin] 750 mg PO QDAY #10 tablet 09/06/21 Unknown Rx ED Physical Exam - General Limitations: No Limitations ED Course Vital Signs 09/06/21 09/06/21 09/06/21 18:34 19:00 20:21 Temperature 97.6 F 98.8 F Pulse Rate 99 H 80 Pulse Rate [ 102 H Bilateral] Respiratory 18 19 Rate Respiratory 20 Rate [Bilateral ] Blood Pressure 133/76 Blood Pressure 183/129 [Right] O2 Sat by Pulse 100 95 Oximetry 09/06/21 09/06/21 20:23 20:24 Temperature 98.0 F Pulse Rate 80 Pulse Rate [ Bilateral] Respiratory 15 15 Rate Respiratory Rate [Bilateral ] Blood Pressure Blood Pressure 133/76 [Right] O2 Sat by Pulse 95 95 Oximetry ED Medical Decision Making - Radiology Data Radiology results: report reviewed, image reviewed [facility] [address] [place] [address] XRay Report Signed Patient: HARESH MCKENZIE MR#: [id number] : 1975 Acct:[id number] Age/Sex: 46 / F ADM Date: 09/06/21 Loc: ED Attending Dr: Ordering Physician: TRACEE PARTIDA Date of Service: 09/06/21 Procedure(s): XR chest routine 2V Accession Number(s): [id number] cc: TRACEE PARTIDA Fluoro Time In Minutes: XR chest routine 2V INDICATION / CLINICAL INFORMATION: COUGH, ASTHMA. COMPARISON: Radiograph from 10/04/2020. FINDINGS: SUPPORT DEVICES: None. HEART /PULMONARY VASCULATURE: Heart is enlarged. Pulmonary vasculature is mildly congested. LUNGS / PLEURA: There are increased diffuse interstitial opacities throughout the lungs. No focal airspace consolidation. No sizable pleural effusion. No pneumothorax. ADDITIONAL FINDINGS: No significant additional findings. IMPRESSION: Diffuse increased interstitial opacities throughout the lungs, may reflect edema or interstitial infiltrate/pneumonitis. No focal consolidative pneumonia. Signer Name: Katie Garza MD Signed: 09/06/2021 7:53 PM Workstation Name: [id number] Transcribed By: JS Dictated By: KATIE GARZA MD Electronically Authenticated By: KATIE GARZA MD Signed Date/Time: 09/06/211952 DD/ 50 TD/TT: Critical care attestation.: If time is entered above; I have spent that time in minutes in the direct care of this critically ill patient, excluding procedure time. ED Disposition Clinical Impression: Acute bronchitis with asthma with acute exacerbation, Acute upper respiratory infection Community acquired pneumonia Qualifiers: Laterality: unspecified laterality Qualified Code(s): J18.9 - Pneumonia, unspecified organism Disposition: 01 HOME / SELF CARE / HOMELESS Is pt being admited?: No Does the pt Need Aspirin: No Condition: Stable Instructions: Cough, Adult, [id number], Acute Bronchitis, Adult, Wccd-ti-Xefz, Upper Respiratory Infection, Adult, [id number]-[id number], Asthma, Adult, Dcod-ct-[id number], Community-Acquired Pneumonia, Adult, Vtbq-os-Wovd, Bacterial Pneumonia (ED) Additional Instructions: Chest x-ray showed infiltrates in the lung diffusely consistent with pneumonitis. Therefore take medications with food, drink plenty of fluids and f ollow-up with your primary care physician in 5 to 7 days for reevaluation. Return to the ED immediately if symptoms get worse. Prescriptions: levoFLOXacin [Levaquin] 750 mg PO QDAY #10 tablet Ibuprofen [Motrin 800 MG tab] 800 mg PO Q8HR PRN #30 tablet PRN Reason: pain Prednisone [predniSONE 10 mg (6-Day Pack, 21 Tabs)] 10 mg PO .TAPER #1 tab.ds.pk Albuterol Mdi (or & Nicu Only) [ProAir HFA Inhaler] 2 puff IH QID PRN #1 inhalation PRN Reason: shortness of breath and cough ALBUTEROL NEB's [Proventil 0.083% NEBS] 3 ml IH Q6H PRN #75 ml PRN Reason: Wheezing Benzonatate [Tessalon Perles] 100 mg PO Q8HR PRN #30 capsule PRN Reason: cough Cetirizine HCl [Zyrtec 10mg tab] 10 mg PO DAILY #30 tab Referrals: [facility] [Provider Group] - 7-10 days Forms: Work/School Release Form(ED) Time of Disposition: 20:29 Print Language: TOGOLESE
== END 2021-09-06 21:22 | disposition home or self-care (01) ==
LOC: ED 18:30
DX: J20.9 Acute bronchitis, unspecified (principal); J45.901 Unspecified asthma with (acute) exacerbation; J06.9 Acute upper respiratory infection, unspecified; J18.9 Pneumonia, unspecified organism; I10 Essential (primary) hypertension
CPT/HCPCS: 71046; 94644; 96372; 96374; 99283; J0696; J2930; J3490

== ENCOUNTER 2021-12-20 06:46 | Emergency (ER) | payer BC ==
[2021-12-20 06:57] VITALS: BP 183/129
--- NOTE | 2021-12-20 07:51 | XRay Report ---
CHEST 2 VIEWS INDICATION / CLINICAL INFORMATION: dyspnea. COMPARISON: Chest x-ray 09/06/2021 FINDINGS: SUPPORT DEVICES: None. HEART / MEDIASTINUM: Borderline to mild cardiomegaly stable. LUNGS / PLEURA: Bilateral perihilar vascular markings as well as bilateral mid and lower lung linear interstitial opacities and scattered bibasilar airspace opacities are present. No pneumothorax. BONES: No significant osseous abnormality. ADDITIONAL FINDINGS: No significant additional findings. IMPRESSION: 1. The appearance of the chest is most suggestive of decompensated CHF with predominantly interstitia l but minimal additional alveolar pulmonary edema. Signer Name: Alexis Mcnally II, MD Signed: 12/20/2021 7:47 AM Workstation Name: [id number]
== END 2021-12-20 10:15 | disposition left against medical advice (07) ==
LOC: ED 06:46
DX: R06.02 Shortness of breath (principal); R06.00 Dyspnea, unspecified; Z53.21 Procedure and treatment not carried out due to patient leaving prior to being seen by health care provider
CPT/HCPCS: 71046

== ENCOUNTER 2021-12-27 10:28 | Inpatient (IN) | payer BC ==
[2021-12-27] MEDS ORDERED: methylPREDNISolone Sod Succinate 125 MG/2 ML INJ IV ONE (10:46)
[2021-12-27] MEDS ORDERED: ALBUTEROL 2.5 MG/3 ML NEBU IH ONE (10:46)
[2021-12-27] MEDS ORDERED: IPRATROPIUM 0.02% NEBU 2.5 ML IH ONE (10:46)
[2021-12-27] MEDS ORDERED: FUROSEMIDE 40 MG/4 ML INJ IV ONE (11:01)
[2021-12-27 11:40] LABS: INR 0.92 (0.87-1.13)
[2021-12-27 11:51] LABS: Creatine Kinase MB 3.3 ng/mL (0.0-4.0)
[2021-12-27 11:53] LABS: Alanine Aminotransferase 30 units/L (7-56); Albumin 4.4 g/dL (3.9-5); BUN/Creatinine Ratio 10; Blood Urea Nitrogen 8 mg/dL (7-17); Calcium 10.9 mg/dL (8.4-10.2); Hemolysis Index 34
[2021-12-27 11:54] LABS: Basophils # (Auto) 0.1 K/mm3 (0.0-0.1); Eosinophils # (Auto) 0.2 K/mm3 (0.0-0.4); Eosinophils % (Auto) 2.2 % (0.0-4.3); Hematocrit 43.7 % (30.3-42.9); Hemoglobin 14.4 gm/dl (10.1-14.3); Lymphocytes # (Auto) 2.9 K/mm3 (1.2-5.4); Lymphocytes % (Auto) 29.7 % (13.4-35.0); Mean Corpuscular HGB Conc 33 % (30-34); Mean Corpuscular Volume 90 fl (79-97); Monocytes # (Auto) 0.5 K/mm3 (0.0-0.8); Monocytes % (Auto) 4.9 % (0.0-7.3); Platelet Count 238 K/mm3 (140-440); Red Blood Count 4.84 M/mm3 (3.65-5.03)
--- NOTE | 2021-12-27 12:21 | XRay Report ---
CHEST 1 VIEW 12/27/2021 11:53 AM INDICATION / CLINICAL INFORMATION: Dyspnea. COMPARISON: 12/20/2021 FINDINGS: SUPPORT DEVICES: None. HEART / MEDIASTINUM: Stable. LUNGS / PLEURA: Stable perihilar and right basilar pulmonary opacities. No pneumothorax. ADDITIONAL FINDINGS: No significant additional findings. IMPRESSION: 1. No significant change. Signer Name: Cullen [place] MD Signed: 12/27/2021 12:17 PM Workstation Name: [email or web address]
[2021-12-27] MEDS ORDERED: METOPROLOL TARTRATE 5 MG/5 ML INJ IV ONE ×2 (12:59→14:17)
[2021-12-27 13:00] LABS: Color,Urine Yellow (Yellow)
[2021-12-27 13:02] LABS: Mucus,Urine FEW /HPF; WBC,Urine < 1.0 /HPF (0.0-6.0)
[2021-12-27 13:15] LABS: Amphetamine Screen,Urine Negative; Benzodiazepines Screen,Urine Negative; Cocaine Screen,Urine Negative; Methadone Screen,Urine Negative; Opiate Screen,Urine Negative
[2021-12-27 13:21] LABS: HCG Qualitative,Urine Negative (Negative)
[2021-12-27 13:38] LABS: Cannabinoid Screen,Urine Positive
--- NOTE | 2021-12-27 13:46 | History and Physical Report ---
History of Present Illness Chief complaint: I cannot breathe History of present illness: 46 YO Female with HTN, Medication Noncompliance, Obesity, Mild Intermittent Asthma, Diet Controlled DM, Metabolic Syndrome presents ED for evaluation. Patient reports "it is hard to breathe". Patient states that she had experien dorothy shortness of breath of the past 1 week with worsening symptoms over the past 3 days. Patient knowledges increased use of nebulizer therapy without relief. Patient acknowledges decreased exercise tolerance, dyspnea on exertion, dyspnea at rest, orthopnea, paroxysmal nocturnal dyspnea, lower extremity edema, and 7 pound weight gain over the past 3 days. Patient transported [facility] via private veh icle for further care and evaluation of the aforementioned symptoms. The patient was seen and evaluated in the emergency department. All lab and imaging studies reviewed. Patient found to have a blood pressure 218/143 mmHg which is consistent with hypertensive emergency. Patient also found to have clinical symptoms consistent with CHF decompensation, as well as hyponatremia. Patient initiated on IV antihypertensive therapy with mild improvement in symptoms. Patient admitted to telemetry due to increased risk of worsening symptoms and for medical stabilization. Patient initiated on CHF protocol. Cardiology team consulted in ED. Patient denies fever, chills, chest pain, palpitation, p roductive cough, skin rash, recent contact, known exposure to COVID-19. No prior admission for review. All medication listed at time of admission as reconciled. Advanced care planning conducted in ED. Past History Past Medical History: diabetes, hypertension, other (See HPI) Past Surgical History: Social history: single. denies: smoking, alcohol abuse Family history: diabetes, hypertension Medications and Allergies Allergies Allergy/AdvReac Type Severity Reaction Status Date / Time No Known Allergies Allergy Verified 12/27/21 10:29 Home Medications Medication Instructions Recorded Confirmed Last Taken Type Amoxicillin/K Clav Tab [Augmentin 1 tab PO Q12HR 10 Days #20 tab 07/12/17 Unknown Rx 875 mg] Naproxen [Naprosyn TAB] 500 mg PO BID PRN #12 tablet 07/12/17 Unknown Rx Ondansetron [Zofran TAB] 4 mg PO Q8HR PRN #12 tablet 07/12/17 Unknown Rx guaiFENesin/CODEINE [Robitussin AC] 5 ml PO Q8H PRN #75 ml 07/12/17 Unknown Rx methylPREDNISolone [Medrol Dose 4 mg PO QAM 6 Days #1 pack 04/02/18 Unknown Rx Teo] Albuterol Mdi (or & Nicu Only) 2 puff IH QID PRN #8.5 gram 06/14/20 Unknown Rx [ProAir HFA Inhaler] Azithromycin 500 mg PO DAILY #5 tablet 06/14/20 Unknown Rx dexAMETHasone [Decadron] 4 mg PO BID 2 Days #4 tablet 06/14/20 Unknown Rx Albuterol Sulfate [Proventil Hfa] 1 - 2 puff IH TID PRN #1 hfa.aer.ad 10/04/20 Unknown Rx Azithromycin [Zithromax TAB] 250 mg PO QDAY 5 Days #6 tablet 10/04/20 Unknown Rx ALBUTEROL NEB's [Proventil 0.083% 3 ml IH Q6H PRN #75 ml 09/06/21 Unknown Rx NEBS] Albuterol Mdi (or & Nicu Only) 2 puff IH QID PRN #1 inhalation 09/06/21 Unknown Rx [ProAir HFA Inhaler] Benzonatate [Tessalon Perles] 100 mg PO Q8HR PRN #30 capsule 09/06/21 Unknown Rx Cetirizine HCl [Zyrtec 10mg tab] 10 mg PO DAILY #30 tab 09/06/21 Unknown Rx Ibuprofen [Motrin 800 MG tab] 800 mg PO Q8HR PRN #30 tablet 09/06/21 Unknown Rx Prednisone [predniSONE 10 mg 10 mg PO .TAPER #1 tab.ds.pk 09/06/21 Unknown Rx (6-Day Pack, 21 Tabs)] levoFLOXacin [Levaquin] 750 mg PO QDAY #10 tablet 09/06/21 Unknown Rx Active Meds: Active Medications Acetaminophen (Acetaminophen 325 Mg Tab) 650 mg PO Q4H PRN PRN Reason: Pain MILD(1-3)/Fever >100.5/OLIVER Albuterol (Albuterol 2.5 Mg/3 Ml Nebu) 2.5 mg IH Q4HRT PRN PRN Reason: Shortness Of Breath Famotidine (Famotidine 20 Mg Tab) 20 mg PO BID DEMETRIUS Furosemide (Furosemide 20 Mg/2 Ml Inj) 20 mg IV BID@0600,1800 DEMETRIUS Lisinopril (Lisinopril 10 Mg Tab) 10 mg PO QDAY DEMETRIUS Metoprolol Tartrate (Metoprolol Tartrate 25 Mg Tab) 12.5 mg PO BID [facility] Morphine Sulfate (Morphine 4 Mg/1 Ml Inj) 2 mg IV Q14H PRN PRN Reason: Pain , Severe (7-10) Ondansetron HCl (Ondansetron 4 Mg/2 Ml Inj) 4 mg IV Q8H PRN PRN Reason: Nausea And Vomiting Oxycodone/Acetaminophen (Oxycodone /Acetaminophen 5-325mg Tab) 1 tab PO Q6H PRN PRN Reason: Pain, Moderate (4-6) Sodium Chloride (Sodium Chloride 0.9% 10 Ml Flush Syringe) 10 ml IV BID DEMETRIUS Sodium Chloride (Sodium Chloride 0.9% 10 Ml Flush Syringe) 10 ml IV PRN PRN PRN Reason: LINE FLUSH Review of Systems Constitutional: weight gain, no weight loss, no fever, no chills, no malaise Ears, nose, mouth and throat: no ear pain, no ear discharge, no tinnitis, no decreased hearing, no nose pain, no nasal congestion Breasts: no change in shape, no swelling, no mass Cardiovascular: orthopnea, shortness of breath, dyspnea on exertion, paroxysmal nocturnal dyspnea, high blood pressure, leg edema, decreased exercise tolerance, no chest pain Respiratory: cough, no cough with sputum, no excessive sputum, no hemoptysis Gastrointestinal: no abdominal pain, no nausea, no vomiting, no diarrhea, no constipation Genitourinary Female: no pelvic pain, no flank pain, no dysuria, no urinary frequency, no urgency Rectal: no pain, no incontinence, no bleeding Musculoskeletal: no neck stiffness, no neck pain, no shooting arm pain Integumentary: no rash, no pruritis, no redness, no sores, no wounds Neurological: no transient paralysis, no weakness, no numbness, no seizures Psychiatric: no anxiety, no memory loss, no sleep disturbances, no insomnia, no hypersomnia, no change in appetite, no suicidal ideation, no disorientation Endocrine: no cold intolerance, no heat intolerance, no polyphagia, no excessive thirst Hematologic/Lymphatic: no easy bruising, no easy bleeding, no lymphadenopathy, no lymphedema Allergic/Immunologic: no urticaria, no allergic rhinitis, no persistent infections Exam - Constitutional Vitals: Temp Pulse Resp BP Pulse Ox 98.5 F 84 14 178/116 99 12/27/21 10:34 12/27/21 13:09 12/27/21 13:09 12/27/21 13:09 12/27/21 13:09 General appearance: Present: mild distress, obese - EENT Eyes: Present: PERRL ENT: hearing intact, clear oral mucosa - Neck Neck: Present: supple, normal ROM, masses or JVD - Respiratory Respiratory effort: normal Respiratory: bilateral: diminished, rales - Cardiovascular Heart Sounds: Present: S1 & S2. Absent: rub, click - Extremities Extremities: pulses symmetrical Extremity abnormal: edema Peripheral Pulses: within normal limits - Abdominal General gastrointestinal: Present: soft, non-tender, non-distended, normal bowel sounds Female genitourinary: Present: normal - Integumentary Integumentary: Present: clear, warm, dry - Musculoskeletal Musculoskeletal: gait normal, strength equal bilaterally - Psychiatric Psychiatric: appropriate mood/affect, intact judgment & insight - Neurologic Neurologic: CNII-XII intact, moves all extremities HEART Score - HEART Score Troponin: Troponin T < 0.010 ng/mL (0.00-0.029) 12/27/21 11:16 Results - Labs CBC & Chem 7: 12/27/21 11:16 12/27/21 11:16 Labs: Abnormal lab results 12/27/21 12/27/21 12/27/21 Range/Units 11:16 11:16 11:16 Hgb 14.4 H (10.1-14.3) gm/dl Hct 43.7 H (30.3-42.9) % Sodium 136 L (137-145) mmol/L Carbon Dioxide 21 L (22-30) mmol/L Glucose 105 H (65-100) mg/dL Calcium 10.9 H (8.4-10.2) mg/dL Magnesium 1.50 L (1.7-2.3) mg/dL Total Creatine Kinase 147 H (30-135) units/L NT-Pro-B Natriuret Pep 1342 H (0-450) pg/mL Assessment and Plan - Patient Problems (1) CHF (congestive heart failure) Current Visit: Yes Status: Acute Qualifiers: Heart failure type: systolic Heart failure chronicity: acute Qualified Code(s): I50.21 - Acute systolic (congestive) heart failure Plan to address problem: Strict I's/O, monitor urine output every shift, daily weight, afterload reduction, blood pressure control, BNP, thyroid panel, magnesium level, diuresis, echocardiogram ordered and pending at time of admission, cardiology team consulted. (2) Hypertensive emergency Current Visit: Yes Status: Acute Plan to address problem: IV antihypertensive therapy, monitor blood pressure per nursing protocol, hydralazine 10 mg IV every 6 hours as needed for systolic blood pressure greater than or equal to 155 mmHg. (3) Hyponatremia syndrome Current Visit: Yes Status: Acute Plan to address problem: Supportive care, BMP, repeat BMP in a.m. (4) Metabolic syndrome Current Visit: Yes Status: Acute Plan to address problem: Balanced diet, weight reduction, increase physical activity discharge. Low-cholesterol diet. (5) Obesity (BMI 30.0-34.9) Current Visit: Yes Status: Acute Plan to address problem: Balanced diet, increase physical activity discharge, outpatient pulmonary follow-up for sleep study. (6) DVT prophylaxis Current Visit: Yes Status: Acute Plan to address problem: SCD to bilateral lower extremities while in bed (7) Advance care planning Current Visit: Yes Status: Acute Plan to address problem: Disease education data, care plan discussed, diagnoses discussed, prognosis discussed, patient acknowledges understanding and agreement with care plan, +30 minutes. (8) Preventative health care Current Visit: Yes Status: Acute Plan to address problem: Patient counseled regarding weight reduction, meal planning, increase physical activity at discharge, calculation of macronutrients, outpatient follow-up with primary care physician for all age and risk factor appropriate screening test. Outpatient follow-up with college athlete for all age and risk factor appropriate screening test. +30 minutes.
--- NOTE | 2021-12-27 13:47 | Emergency Department Report ---
ED Shortness of Breath HPI - General Chief Complaint: Dyspnea/Respdistress Stated Complaint: SOB/ANXIETY Time Seen by Provider: 12/27/21 10:39 Source: patient Mode of arrival: Ambulatory Limitations: No Limitations - History of Present Illness Initial Comments: I FEEL LIKE I'M DROWNING WHENI TRY TO SLEEP." HYPERVENTILATING IN TRIAGE. C/O SOB 2 DAYS pt is 46 years old with history of HTN and asthma non compliants meds , has been SOB for few days , feels like she is drowning no chest pain MD Complaint: shortness of breath, "asthma attack" -: week(s) Consistency: intermittent Improves With: rest Worsens With: lying flat Known History Of: asthma, congestive heart failure Associated Symptoms: denies other symptoms - Related Data Previous Rx's Medication Instructions Recorded Last Taken Type Amoxicillin/K Clav Tab [Augmentin 1 tab PO Q12HR 10 Days #20 tab 07/12/17 Unknown Rx 875 mg] Naproxen [Naprosyn TAB] 500 mg PO BID PRN #12 tablet 07/12/17 Unknown Rx Ondansetron [Zofran TAB] 4 mg PO Q8HR PRN #12 tablet 07/12/17 Unknown Rx guaiFENesin/CODEINE [Robitussin AC] 5 ml PO Q8H PRN #75 ml 07/12/17 Unknown Rx methylPREDNISolone [Medrol Dose 4 mg PO QAM 6 Days #1 pack 07/12/17 Unknown Rx Teo] Albuterol Mdi (or & Nicu Only) 2 puff IH QID PRN #8.5 gram 06/14/20 Unknown Rx [ProAir HFA Inhaler] Azithromycin 500 mg PO DAILY #5 tablet 06/14/20 Unknown Rx dexAMETHasone [Decadron] 4 mg PO BID 2 Days #4 tablet 06/14/20 Unknown Rx Albuterol Sulfate [Proventil Hfa] 1 - 2 puff IH TID PRN #1 hfa.aer.ad 10/04/20 Unknown Rx Azithromycin [Zithromax TAB] 250 mg PO QDAY 5 Days #6 tablet 10/04/20 Unknown Rx ALBUTEROL NEB's [Proventil 0.083% 3 ml IH Q6H PRN #75 ml 09/06/21 Unknown Rx NEBS] Albuterol Mdi (or & Nicu Only) 2 puff IH QID PRN #1 inhalation 09/06/21 Unknown Rx [ProAir HFA Inhaler] Benzonatate [Tessalon Perles] 100 mg PO Q8HR PRN #30 capsule 09/06/21 Unknown Rx Cetirizine HCl [Zyrtec 10mg tab] 10 mg PO DAILY #30 tab 09/06/21 Unknown Rx Ibuprofen [Motrin 800 MG tab] 800 mg PO Q8HR PRN #30 tablet 09/06/21 Unknown Rx Prednisone [predniSONE 10 mg 10 mg PO .TAPER #1 tab.ds.pk 09/06/21 Unknown Rx (6-Day Pack, 21 Tabs)] levoFLOXacin [Levaquin] 750 mg PO QDAY #10 tablet 09/06/21 Unknown Rx Allergies Allergy/AdvReac Type Severity Reaction Status Date / Time No Known Allergies Allergy Verified 12/27/21 10:29 ED Review of Systems ROS: Stated complaint: SOB/ANXIETY Other details as noted in HPI Constitutional: denies: chills, fever Eyes: denies: eye pain, eye discharge, vision change ENT: denies: ear pain, throat pain Respiratory: denies: cough, shortness of breath, wheezing Cardiovascular: denies: chest pain, palpitations Endocrine: no symptoms reported Gastrointestinal: denies: abdominal pain, nausea, diarrhea Genitourinary: denies: urgency, dysuria, discharge Musculoskeletal: denies: back pain, joint swelling, arthralgia Skin: denies: rash, lesions Neurological: denies: headache, weakness, paresthesias Psychiatric: denies: anxiety, depression Hematological/Lymphatic: denies: easy bleeding, easy bruising ED Past Medical Hx - Past Medical History Hx Hypertension: Yes Hx Asthma: Yes Additional medical history: bronchitis. Chronic Cough - Surgical History Additional Surgical History: c sect x 3 - Social History Smoking Status: Never Smoker Substance Use Type: None - Medications Home Medications: Home Medications Medication Instructions Recorded Confirmed Last Taken Type Amoxicillin/K Clav Tab [Augmentin 1 tab PO Q12HR 10 Days #20 tab 07/12/17 Unknown Rx 875 mg] Naproxen [Naprosyn TAB] 500 mg PO BID PRN #12 tablet 07/12/17 Unknown Rx Ondansetron [Zofran TAB] 4 mg PO Q8HR PRN #12 tablet 07/12/17 Unknown Rx guaiFENesin/CODEINE [Robitussin AC] 5 ml PO Q8H PRN #75 ml 07/12/17 Unknown Rx methylPREDNISolone [Medrol Dose 4 mg PO QAM 6 Days #1 pack 07/12/17 Unknown Rx Teo] Albuterol Mdi (or & Nicu Only) 2 puff IH QID PRN #8.5 gram 06/14/20 Unknown Rx [ProAir HFA Inhaler] Azithromycin 500 mg PO DAILY #5 tablet 06/14/20 Unknown Rx dexAMETHasone [Decadron] 4 mg PO BID 2 Days #4 tablet 06/14/20 Unknown Rx Albuterol Sulfate [Proventil Hfa] 1 - 2 puff IH TID PRN #1 hfa.aer.ad 10/04/20 Unknown Rx Azithromycin [Zithromax TAB] 250 mg PO QDAY 5 Days #6 tablet 10/04/20 Unknown Rx ALBUTEROL NEB's [Proventil 0.083% 3 ml IH Q6H PRN #75 ml 09/06/21 Unknown Rx NEBS] Albuterol Mdi (or & Nicu Only) 2 puff IH QID PRN #1 inhalation 09/06/21 Unknown Rx [ProAir HFA Inhaler] Benzonatate [Tessalon Perles] 100 mg PO Q8HR PRN #30 capsule 09/06/21 Unknown Rx Cetirizine HCl [Zyrtec 10mg tab] 10 mg PO DAILY #30 tab 09/06/21 Unknown Rx Ibuprofen [Motrin 800 MG tab] 800 mg PO Q8HR PRN #30 tablet 09/06/21 Unknown Rx Prednisone [predniSONE 10 mg 10 mg PO .TAPER #1 tab.ds.pk 09/06/21 Unknown Rx (6-Day Pack, 21 Tabs)] levoFLOXacin [Levaquin] 750 mg PO QDAY #10 tablet 09/06/21 Unknown Rx ED Physical Exam - General Limitations: No Limitations General appearance: alert, in distress - Head Head exam: Present: atraumatic, normocephalic - Eye Eye exam: Present: normal appearance - ENT ENT exam: Present: mucous membranes moist - Neck Neck exam: Present: normal inspection - Respiratory Respiratory exam: Present: rales, accessory muscle use, decreased breath sounds. Absent: respiratory distress - Cardiovascular Cardiovascular Exam: Present: normal rhythm, tachycardia. Absent: systolic murmur, diastolic murmur, rubs, gallop - GI/Abdominal GI/Abdominal exam: Present: soft, normal bowel sounds - Extremities Exam Extremities exam: Present: normal inspection - Back Exam Back exam: Present: normal inspection - Neurological Exam Neurological exam: Present: alert, oriented X3 - Psychiatric Psychiatric exam: Present: normal affect, normal mood - Skin Skin exam: Present: warm, dry, intact, normal color. Absent: rash ED Course Vital Signs 12/27/21 12/27/21 12/27/21 10:34 10:45 11:01 Temperature 98.5 F Pulse Rate 116 H 111 H 98 H Pulse Rate [ Anterior Bilateral Throughout] Respiratory 22 34 H 39 H Rate Respiratory Rate [Anterior Bilateral Throughout] Blood Pressure 205/134 218/143 218/143 O2 Sat by Pulse 99 97 97 Oximetry 12/27/21 12/27/21 12/27/21 11:05 11:11 11:15 Temperature Pulse Rate 103 H 105 H 98 H Pulse Rate [ Anterior Bilateral Throughout] Respiratory 53 H 23 24 Rate Respiratory Rate [Anterior Bilateral Throughout] Blood Pressure 188/121 188/121 188/121 O2 Sat by Pulse 93 92 98 Oximetry 12/27/21 12/27/21 12/27/21 11:18 11:21 11:25 Temperature Pulse Rate 95 H 94 H Pulse Rate [ 95 H Anterior Bilateral Throughout] Respiratory 19 21 Rate Respiratory 17 Rate [Anterior Bilateral Throughout] Blood Pressure 188/121 181/112 O2 Sat by Pulse 100 100 Oximetry 12/27/21 12/27/21 12/27/21 11:31 11:35 11:41 Temperature Pulse Rate 94 H 99 H 110 H Pulse Rate [ Anterior Bilateral Throughout] Respiratory 27 H 31 H 26 H Rate Respiratory Rate [Anterior Bilateral Throughout] Blood Pressure 181/112 181/112 181/112 O2 Sat by Pulse 98 98 96 Oximetry 12/27/21 12/27/21 12/27/21 11:45 11:50 11:56 Temperature Pulse Rate 107 H 95 H 104 H Pulse Rate [ Anterior Bilateral Throughout] Respiratory 33 H 23 32 H Rate Respiratory Rate [Anterior Bilateral Throughout] Blood Pressure 159/134 181/112 181/112 O2 Sat by Pulse 96 95 94 Oximetry 12/27/21 12/27/21 12/27/21 12:00 12:06 12:13 Temperature Pulse Rate 106 H 101 H 100 H Pulse Rate [ Anterior Bilateral Throughout] Respiratory 22 15 22 Rate Respiratory Rate [Anterior Bilateral Throughout] Blood Pressure 181/112 159/134 O2 Sat by Pulse 94 96 Oximetry 12/27/21 12/27/21 12/27/21 12:15 12:20 12:53 Temperature Pulse Rate 98 H 109 H 96 H Pulse Rate [ Anterior Bilateral Throughout] Respiratory 25 H 26 H 29 H Rate Respiratory Rate [Anterior Bilateral Throughout] Blood Pressure 190/131 O2 Sat by Pulse 95 93 98 Oximetry 12/27/21 12/27/21 12/27/21 12:54 13:03 13:04 Temperature Pulse Rate 94 H 99 H 97 H Pulse Rate [ Anterior Bilateral Throughout] Respiratory 22 13 20 Rate Respiratory Rate [Anterior Bilateral Throughout] Blood Pressure 186/118 193/137 178/116 O2 Sat by Pulse 96 96 98 Oximetry 12/27/21 12/27/21 12/27/21 13:05 13:07 13:09 Temperature Pulse Rate 96 H 85 84 Pulse Rate [ Anterior Bilateral Throughout] Respiratory 16 23 14 Rate Respiratory Rate [Anterior Bilateral Throughout] Blood Pressure 178/116 178/116 178/116 O2 Sat by Pulse 98 97 99 Oximetry ED Medical Decision Making - Lab Data Result diagrams: 12/27/21 11:16 12/27/21 11:16 - EKG Data -: EKG Interpreted by Me EKG shows normal: sinus rhythm Rate: tachycardia - EKG Data Interpretation: nonspecific ST-T wave patricia - Radiology Data Radiology results: report reviewed, image reviewed - Medical Decision Making work up showed : - Hypetensive emrgency with elevated BNP , lasix given rt given steriods and b blockers Critical care attestation.: If time is entered above; I have spent that time in minutes in the direct care of this critically ill patient, excluding procedure time. ED Disposition Clinical Impression: SOB (shortness of breath), Hypertensive emergency, CHF (congestive heart failure) Disposition: ADMITTED INPATIENT Is pt being admited?: Yes Does the pt Need Aspirin: No Condition: Fair Instructions: Hypertension (ED) Referrals: PRIMARY CARE, [Primary Care Provider] - 3-5 Days
[2021-12-27] MEDS: hydrALAZINE 20 MG/1 ML INJ IV PRN ×2 (14:25→23:33)
[2021-12-27] MEDS ORDERED: ACETAMINOPHEN 325 MG TAB PO PRN (14:30)
[2021-12-27] MEDS ORDERED: ONDANSETRON 4 MG/2 ML INJ IV PRN (14:30)
[2021-12-27] MEDS ORDERED: oxyCODONE /ACETAMINOPHEN 5-325MG TAB PO PRN (15:00)
[2021-12-27] MEDS ORDERED: MORPHINE 4 MG/1 ML INJ IV PRN (15:00)
[2021-12-27] MEDS ORDERED: LISINOPRIL 10 MG TAB PO SCH ×2 (15:00→16:30)
--- NOTE | 2021-12-27 15:46 | Consultation ---
History of Present Illness Consult date: 12/27/21 Requesting physician: YOBANI STAPLETON Consult reason: congestive heart failure History of present illness: Pt is a 46-year-old female with a hx of HTN (which she states she treats with alternative therapies) who presented with complaints of progressively worsening SOB x 3 days. Associated with ARMANDO and orthopnea/PND. She also reports a cough, sometimes dry and sometimes productive. She states she can only walk a few steps without significant. This has been building up for almost a year. Pt claims she was initially told she had asthma in the ER in the past but has never seen a System Support Analyst. She was then diagnosed with pneumonia, followed by bronchitis. She does have a smoking hx (quit 3 years ago, 1-2 cigarettes/day prior). Cardiology has been consulted for CHF. BNP elevated (1342pg/mL). CXR reveals mild cardiomegaly and vascular congestion. Pt is previously unknown to our practice. Past History Past Medical History: hypertension Past Surgical History: denies: valve replacement, CABG, PTCA Social history: smoking (former tobacco (quit 3 yrs ago), marijuana) Family history: hypertension Medications and Allergies Allergies Allergy/AdvReac Type Severity Reaction Status Date / Time No Known Allergies Allergy Verified 12/27/21 10:29 Home Medications Medication Instructions Recorded Confirmed Last Taken Type Amoxicillin/K Clav Tab [Augmentin 1 tab PO Q12HR 10 Days #20 tab 07/12/17 Unknown Rx 875 mg] Naproxen [Naprosyn TAB] 500 mg PO BID PRN #12 tablet 07/12/17 Unknown Rx Ondansetron [Zofran TAB] 4 mg PO Q8HR PRN #12 tablet 07/12/17 Unknown Rx guaiFENesin/CODEINE [Robitussin AC] 5 ml PO Q8H PRN #75 ml 07/12/17 Unknown Rx methylPREDNISolone [Medrol Dose 4 mg PO QAM 6 Days #1 pack 07/12/17 Unknown Rx Teo] Albuterol Mdi (or & Nicu Only) 2 puff IH QID PRN #8.5 gram 06/14/20 Unknown Rx [ProAir HFA Inhaler] Azithromycin 500 mg PO DAILY #5 tablet 06/14/20 Unknown Rx dexAMETHasone [Decadron] 4 mg PO BID 2 Days #4 tablet 06/14/20 Unknown Rx Albuterol Sulfate [Proventil Hfa] 1 - 2 puff IH TID PRN #1 hfa.aer.ad 10/04/20 Unknown Rx Azithromycin [Zithromax TAB] 250 mg PO QDAY 5 Days #6 tablet 10/04/20 Unknown Rx ALBUTEROL NEB's [Proventil 0.083% 3 ml IH Q6H PRN #75 ml 09/06/21 Unknown Rx NEBS] Albuterol Mdi (or & Nicu Only) 2 puff IH QID PRN #1 inhalation 09/06/21 Unknown Rx [ProAir HFA Inhaler] Benzonatate [Tessalon Perles] 100 mg PO Q8HR PRN #30 capsule 09/06/21 Unknown Rx Cetirizine HCl [Zyrtec 10mg tab] 10 mg PO DAILY #30 tab 09/06/21 Unknown Rx Ibuprofen [Motrin 800 MG tab] 800 mg PO Q8HR PRN #30 tablet 09/06/21 Unknown Rx Prednisone [predniSONE 10 mg 10 mg PO .TAPER #1 tab.ds.pk 09/06/21 Unknown Rx (6-Day Pack, 21 Tabs)] levoFLOXacin [Levaquin] 750 mg PO QDAY #10 tablet 09/06/21 Unknown Rx Active Meds: Active Medications Acetaminophen (Acetaminophen 325 Mg Tab) 650 mg PO Q4H PRN PRN Reason: Pain MILD(1-3)/Fever >100.5/OLIVER Albuterol (Albuterol 2.5 Mg/3 Ml Nebu) 2.5 mg IH Q4HRT PRN PRN Reason: Shortness Of Breath Famotidine (Famotidine 20 Mg Tab) 20 mg PO BID [facility] Furosemide (Furosemide 20 Mg/2 Ml Inj) 20 mg IV BID@0600,1800 [facility] Hydralazine HCl (Hydralazine 20 Mg/1 Ml Inj) 10 mg IV Q8HR PRN PRN Reason: Hypertension Last Admin: 12/27/21 14:25 Dose: 10 mg Lisinopril (Lisinopril 10 Mg Tab) 10 mg PO QDAY DEMETRIUS Last Admin: 12/27/21 15:10 Dose: 10 mg Metoprolol Tartrate (Metoprolol Tartrate 25 Mg Tab) 12.5 mg PO BID [facility] Morphine Sulfate (Morphine 4 Mg/1 Ml Inj) 2 mg IV Q14H PRN PRN Reason: Pain , Severe (7-10) Ondansetron HCl (Ondansetron 4 Mg/2 Ml Inj) 4 mg IV Q8H PRN PRN Reason: Nausea And Vomiting Oxycodone/Acetaminophen (Oxycodone /Acetaminophen 5-325mg Tab) 1 tab PO Q6H PRN PRN Reason: Pain, Moderate (4-6) Sodium Chloride (Sodium Chloride 0.9% 10 Ml Flush Syringe) 10 ml IV BID DEMETRIUS Sodium Chloride (Sodium Chloride 0.9% 10 Ml Flush Syringe) 10 ml IV PRN PRN PRN Reason: LINE FLUSH Review of Systems Constitutional: no fever, no chills Ears, nose, mouth and throat: no nasal congestion, no sore throat Cardiovascular: orthopnea, palpitations (occasional), shortness of breath, dyspnea on exertion, paroxysmal nocturnal dyspnea, no chest pain, no edema, no syncope, no lightheadedness Respiratory: cough with sputum, shortness of breath, dyspnea on exertion, no wheezing Gastrointestinal: vomiting (occasional), no abdominal pain Genitourinary Female: no dysuria Musculoskeletal: no neck stiffness, no neck pain, no myalgias Integumentary: no rash, no wounds Neurological: no weakness, no numbness, no tingling, no seizures, no syncope, no headaches Endocrine: no cold intolerance, no heat intolerance Hematologic/Lymphatic: no easy bruising, no easy bleeding Allergic/Immunologic: no anaphylaxis Physical Examination Vital Signs Temp Pulse Resp BP Pulse Ox 98.5 F 116 H 22 205/134 99 12/27/21 10:34 12/27/21 10:34 12/27/21 10:34 12/27/21 10:34 12/27/21 10:34 General appearance: no acute distress HEENT: Positive: EOMI, Normocephaly Neck: Negative: JVD/HJR Cardiac: Positive: S1/S2, Systolic Murmur (2/6), Tachycardia Lungs: Positive: Decreased Breath Sounds Neuro: Positive: Grossly Intact Abdomen: Positive: Soft Skin: Negative: Rash Musculoskeletal: No Pain Extremities: Present: upper extr. pulses, warm. Absent: edema Results 12/27/21 11:16 12/28/21 04:16 Cardiac Enzymes 12/27/21 Range/Units 11:16 AST 30 (5-40) units/L CK-MB (CK-2) 3.3 (0.0-4.0) ng/mL Coagulation 12/27/21 Range/Units 11:16 PT 13.4 (12.2-14.9) Sec. INR 0.92 (0.87-1.13) CBC 12/27/21 Range/Units 11:16 WBC 9.7 (4.5-11.0) K/mm3 RBC 4.84 (3.65-5.03) M/mm3 Hgb 14.4 H (10.1-14.3) gm/dl Hct 43.7 H (30.3-42.9) % Plt Count 238 (140-440) K/mm3 Lymph # (Auto) 2.9 (1.2-5.4) K/mm3 Spencer # (Auto) 0.5 (0.0-0.8) K/mm3 Eos # (Auto) 0.2 (0.0-0.4) K/mm3 Baso # (Auto) 0.1 (0.0-0.1) K/mm3 Comprehensive Metabolic Panel 12/27/21 Range/Units 11:16 Sodium 136 L (137-145) mmol/L Potassium 4.0 (3.6-5.0) mmol/L Chloride 98.7 (98-107) mmol/L Carbon Dioxide 21 L (22-30) mmol/L BUN 8 (7-17) mg/dL Creatinine 0.8 (0.6-1.2) mg/dL Glucose 105 H (65-100) mg/dL Calcium 10.9 H (8.4-10.2) mg/dL AST 30 (5-40) units/L ALT 30 (7-56) units/L Alkaline Phosphatase 81 (35-129) units/L Total Protein 7.0 (6.3-8.2) g/dL Albumin 4.4 (3.9-5) g/dL - Imaging and Cardiology Echo: pending EKG: report reviewed, image reviewed EKG interpretations - Telemetry EKG Rhythm: Sinus Tachycardia - EKG Sinus rhythms and dysrhythmias: sinus tachycardia Repolarization changes or abnormalities: nonspecific abnormality, ST segment, and/or T wave Assessment and Plan Assessment: Acute Respiratory Failure Acute HF?EF Hypertensive Urgency ?Asthma/COPD H/o Tobacco Abuse Obesity Plan: Echo pending. Agree with IV diuresis. Increase Lasix to 40mg BID. Mg repletion ordered. Strict I/Os. Closely monitor renal indices. Increase Lopressor to 50mg BID. Increase Lisinopril to 20mg daily. Continue to optimize antihypertensive regimen as needed. Pt seen in conjunction with Dr. Estrada, who agrees with the assessment and plan of care. - Patient Problems (1) CHF (congestive heart failure) Current Visit: Yes Status: Acute Qualifiers: Heart failure type: systolic Heart failure chronicity: acute Qualified Code(s): I50.21 - Acute systolic (congestive) heart failure (2) Hypertensive urgency Current Visit: Yes Status: Acute
[2021-12-27 15:53] LABS: Free T4 (Free Thyroxine) 1.45 ng/dL (0.76-1.46)
[2021-12-27] MEDS ORDERED: ALBUTEROL 2.5 MG/3 ML NEBU IH PRN (16:00)
[2021-12-27] MEDS ORDERED: MAGNESIUM SULFATE 2 GM/50 ML BAG IV ONE (17:00)
[2021-12-27] MEDS: FUROSEMIDE 40 MG/4 ML INJ IV SCH (17:24)
[2021-12-27] MEDS ORDERED: FUROSEMIDE 20 MG/2 ML INJ IV SCH (18:00)
[2021-12-27] MEDS ORDERED: METOPROLOL TARTRATE 25 MG TAB PO SCH ×2 (22:00)
[2021-12-27] MEDS: FAMOTIDINE 20 MG TAB PO SCH (22:41)
[2021-12-28] MEDS: FUROSEMIDE 40 MG/4 ML INJ IV SCH ×2 (05:17→20:49)
[2021-12-28 05:31] LABS: Blood Urea Nitrogen 11 mg/dL (7-17); Calcium 9.7 mg/dL (8.4-10.2); Hemolysis Index 0
[2021-12-28 05:34] LABS: BUN/Creatinine Ratio 16
[2021-12-28] MEDS ORDERED: METOPROLOL TARTRATE 25 MG TAB PO SCH (08:14)
--- NOTE | 2021-12-28 08:14 | Progress Note ---
Assessment and Plan Assessment and plan: #Acute systolic heart failure -new diagnosis -TTE shows LVEF 40% -continue BB + lisinopril; titrate as needed -Strict I's/O, monitor urine output every shift -Cardiology following, assistance appreciated -ischemic evaluation when patient is more stable per Cardiology #Acute hypoxic respiratory failure #Severe pulmonary hypertension -patient currently on 2L NC, has no oxygen requirement at baseline -will wean O2 as tolerated -TTE showed evidence of severe tricuspid regurgitation and pulmonary HTN -Pulmonology follow up outpatient with sleep study; will consider inpatient consult if patient clinical status does not improve #Hypertension #Hypertensive emergency-resolved -patient with history of HTN treated with natural remedies -patient agreeable to starting anti-hypertensive therapies -continue PRN hydralazine, lopressor and lisinopril at doses adjusted by Cardiology #Hyponatremia #Hypomagnesemia -will continue to replete and monitor magnesium levels #Obesity #Weight loss counseling #Exercise counseling - BMI 34.7 - Counseled patient on the importance of weight loss, incorporating exercise, and dietary changes (lean meats, fresh fruits and vegetables, and water intake). Patient expresses understanding. - Time: +15 min #Anxiety -per Patient history -xanax PRN #Advanced care planning -Disease education data, care plan discussed, diagnoses discussed, prognosis discussed, patient acknowledges understanding and agreement with care plan, +30 minutes. History Interval history: No acute events overnight. Patient's blood pressures have improved. Chart review. Patient reports feeling much improved since admission. She has had increased urination and is able to sleep at night without feeling like she was drowning. We discussed current care plan. She has not had any headaches, chest pain, palpitations, cough, and peripheral edema. Hospitalist Physical - Physical exam Narrative exam: GENERAL: Well-developed well-nourished. In no acute distress. HEENT: Nasal cannula in place at 2 L/min. NECK: Supple. CHEST/LUNGS: CTAB on supplemental oxygen. HEART/CARDIOVASCULAR: RRR. No murmur, rubs or gallops appreciated. ABDOMEN: +BS. NT/ND. SKIN: No rashes noted. NEURO: No focal motor deficit. Follows all commands. MUSCULOSKELETAL: No joint effusion EXTREMITIES: No cyanosis, clubbing or edema. PSYCH: Cooperative. - Constitutional Vitals: Temp Pulse Resp BP Pulse Ox 97.2 F L 82 20 153/100 99 12/28/21 04:36 12/28/21 04:35 12/28/21 04:39 12/28/21 04:35 12/28/21 04:39 General appearance: Present: mild distress, obese HEART Score - HEART Score Troponin: Troponin T < 0.010 ng/mL (0.00-0.029) 12/27/21 11:16 Results - Labs CBC & Chem 7: 12/27/21 11:16 12/29/21 05:06 Labs: Laboratory Last Values WBC 9.7 K/mm3 (4.5-11.0) 12/27/21 11:16 RBC 4.84 M/mm3 (3.65-5.03) 12/27/21 11:16 Hgb 14.4 gm/dl (10.1-14.3) H 12/27/21 11:16 Hct 43.7 % (30.3-42.9) H 12/27/21 11:16 MCV 90 fl (79-97) 12/27/21 11:16 MCH 30 pg (28-32) 12/27/21 11:16 MCHC 33 % (30-34) 12/27/21 11:16 RDW 15.0 % (13.2-15.2) 12/27/21 11:16 Plt Count 238 K/mm3 (140-440) 12/27/21 11:16 Lymph % (Auto) 29.7 % (13.4-35.0) 12/27/21 11:16 [place] % (Auto) 4.9 % (0.0-7.3) 12/27/21 11:16 Eos % (Auto) 2.2 % (0.0-4.3) 12/27/21 11:16 Baso % (Auto) American Sign Language Interpreter 12/27/21 11:16 Lymph # (Auto) 2.9 K/mm3 (1.2-5.4) 12/27/21 11:16 [place] # (Auto) 0.5 K/mm3 (0.0-0.8) 12/27/21 11:16 Eos # (Auto) 0.2 K/mm3 (0.0-0.4) 12/27/21 11:16 Baso # (Auto) 0.1 K/mm3 (0.0-0.1) 12/27/21 11:16 Seg Neutrophils % 62.7 % (40.0-70.0) 12/27/21 11:16 Seg Neutrophils # 6.1 K/mm3 (1.8-7.7) 12/27/21 11:16 PT 13.4 Sec. (12.2-14.9) 12/27/21 11:16 INR 0.92 (0.87-1.13) 12/27/21 11:16 Sodium 134 mmol/L (137-145) L 12/28/21 04:16 Potassium 4.1 mmol/L (3.6-5.0) 12/28/21 04:16 Chloride 98.6 mmol/L (98-107) 12/28/21 04:16 Carbon Dioxide 24 mmol/L (22-30) 12/28/21 04:16 Anion Gap 16 mmol/L 12/28/21 04:16 BUN 11 mg/dL (7-17) 12/28/21 04:16 Creatinine 0.7 mg/dL (0.6-1.2) 12/28/21 04:16 Estimated GFR > 60 ml/min 12/28/21 04:16 BUN/Creatinine Ratio 16 % 12/28/21 04:16 Glucose 109 mg/dL (65-100) H 12/28/21 04:16 Ketones Quantitative Negative (Negative) 12/27/21 11:16 Lactic Acid 1.60 mmol/L (0.7-2.0) 12/27/21 11:16 Calcium 9.7 mg/dL (8.4-10.2) 12/28/21 04:16 Magnesium 1.50 mg/dL (1.7-2.3) L 12/27/21 13:58 Total Bilirubin 1.00 mg/dL (0.1-1.2) 12/27/21 11:16 AST 30 units/L (5-40) 12/27/21 11:16 ALT 30 units/L (7-56) 12/27/21 11:16 Alkaline Phosphatase 81 units/L (35-129) 12/27/21 11:16 Total Creatine Kinase 147 units/L (30-135) H 12/27/21 11:16 CK-MB (CK-2) 3.3 ng/mL (0.0-4.0) 12/27/21 11:16 CK-MB (CK-2) Rel Index 2.2 (0-4) 12/27/21 11:16 Troponin T < 0.010 ng/mL (0.00-0.029) 12/27/21 11:16 NT-Pro-B Natriuret Pep 1342 pg/mL (0-450) H 12/27/21 11:16 Total Protein 7.0 g/dL (6.3-8.2) 12/27/21 11:16 Albumin 4.4 g/dL (3.9-5) 12/27/21 11:16 Albumin/Globulin Ratio 1.7 % 12/27/21 11:16 Lipase 16 units/L (13-60) 12/27/21 11:16 TSH 1.780 mlU/mL (0.270-4.200) 12/27/21 13:58 Free T4 1.45 ng/dL (0.76-1.46) 12/27/21 13:58 Urine Color Yellow (Yellow) 12/27/21 11:56 Urine Turbidity Clear (Clear) 12/27/21 11:56 Specific [place] (Man) 1.005 (1.003-1.030) 12/27/21 11:56 Ur Protein (Man) 1+ mg/dL (Negative) 12/27/21 11:56 Ur Ketones (Man) Negative (Negative) 12/27/21 11:56 Ur Nitrite (Man) Negative (Negative) 12/27/21 11:56 Urine Bilirubin (Man) Negative (Negative) 12/27/21 11:56 Urine Ictotest Not Reportable 12/27/21 11:56 Leukocyte Esterase (Man) Negative (Negative) 12/27/21 11:56 Urine WBC (Auto) < 1.0 /HPF (0.0-6.0) 12/27/21 11:56 Urine RBC (Auto) 2.0 /HPF (0.0-6.0) 12/27/21 11:56 U Epithel Cells (Auto) 1.0 /HPF (0-13.0) 12/27/21 11:56 Urine RBC (Manual) 1+ (Negative) 12/27/21 11:56 Urine Mucus Few /HPF 12/27/21 11:56 Urine HCG, Qual Negative (Negative) 12/27/21 11:56 Urine Opiates Screen Negative 12/27/21 11:56 Urine Methadone Screen Negative 12/27/21 11:56 Ur Barbiturates Screen Negative 12/27/21 11:56 Ur Phencyclidine Scrn Negative 12/27/21 11:56 Ur Amphetamines Screen Negative 12/27/21 11:56 U Benzodiazepines Scrn Negative 12/27/21 11:56 Urine Cocaine Screen Negative 12/27/21 11:56 U Marijuana (THC) Screen Positive 12/27/21 11:56 Drugs of Abuse Note Disclamer 12/27/21 11:56 Jung/IV: Voiding Method Toilet Active Medications - Current Medications Current Medications: Generic Name Dose Route Start Last Admin Trade Name Freq PRN Reason Stop Dose Admin Acetaminophen 650 mg 12/27/21 14:30 Acetaminophen 325 Mg Tab PO Q4H PRN Pain MILD(1-3)/Fever >100.5/OLIVER Albuterol 2.5 mg 12/27/21 16:00 Albuterol 2.5 Mg/3 Ml Nebu IH Q4HRT PRN Shortness Of Breath Famotidine 20 mg 12/27/21 22:00 12/27/21 22:41 Famotidine 20 Mg Tab PO 20 mg BID DEMETRIUS Administration Furosemide 40 mg 12/27/21 18:00 12/28/21 05:17 Furosemide 40 Mg/4 Ml Inj IV 40 mg 0600,1800 DEMETRIUS Administration Hydralazine HCl 10 mg 12/27/21 14:30 12/27/21 23:33 Hydralazine 20 Mg/1 Ml Inj IV 10 mg Q8HR PRN Administration Hypertension Lisinopril 20 mg 12/28/21 10:00 Lisinopril 20 Mg Tab PO QDAY DEMETRIUS Metoprolol Tartrate 50 mg 12/28/21 08:14 Metoprolol Tartrate 25 Mg Tab PO BID DEMETRIUS Morphine Sulfate 2 mg 12/27/21 15:00 Morphine 4 Mg/1 Ml Inj IV Q14H PRN Pain , Severe (7-10) Ondansetron HCl 4 mg 12/27/21 14:30 Ondansetron 4 Mg/2 Ml Inj IV Q8H PRN Nausea And Vomiting Oxycodone/Acetaminophen 1 tab 12/27/21 15:00 Oxycodone /Acetaminophen 5-325mg Tab PO Q6H PRN Pain, Moderate (4-6) Sodium Chloride 10 ml 12/27/21 22:00 12/27/21 22:41 Sodium Chloride 0.9% 10 Ml Flush Syringe IV 10 ml BID DEMETRIUS Administration Sodium Chloride 10 ml 12/27/21 15:00 Sodium Chloride 0.9% 10 Ml Flush Syringe IV PRN PRN LINE FLUSH
[2021-12-28] MEDS: METOPROLOL TARTRATE 50 MG TAB PO SCH ×2 (09:38→21:56)
[2021-12-28] MEDS: FAMOTIDINE 20 MG TAB PO SCH ×2 (09:39→21:57)
[2021-12-28] MEDS ORDERED: LISINOPRIL 20 MG TAB PO SCH (10:00)
--- NOTE | 2021-12-28 11:56 | Progress Note ---
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 Continue IV diuresis. F/u BMP & Mg in AM. Continue Lopressor 50mg BID. Will be converted to Toprol XL prior to discharge. Increase Lisinopril to 40mg daily. Plan for ischemic eval once respiratory status is stable given reduced LVEF. Would benefit from outpatient Pulm referral as well. Pt seen in conjunction with Dr. Estrada, who agrees with the assessment and plan of care. - Patient Problems (1) Acute HFrEF (heart failure with reduced ejection fraction) Current Visit: Yes Status: Acute (2) Hypertensive urgency Current Visit: Yes Status: Acute (3) Severe pulmonary hypertension Current Visit: Yes Status: Acute (4) Tricuspid regurgitation Current Visit: Yes Status: Acute (5) Mitral regurgitation Current Visit: Yes Status: Acute Subjective Date of service: 12/28/21 Principal diagnosis: Acute HFmrEF Interval history: Diuresing well. Breathing is much better. On 3L NC. No new complaints. Objective Vital Signs Temp Pulse Resp BP BP Pulse Ox 12/28/21 09:38 85 157/94 12/28/21 04:39 20 99 12/28/21 04:36 97.2 F L 20 12/28/21 04:35 82 153/100 99 12/27/21 23:33 92 H 166/101 12/27/21 23:26 92 H 18 166/101 100 12/27/21 22:40 89 178/115 12/27/21 22:38 90 20 178/115 100 12/27/21 21:13 100 12/27/21 18:00 20 186/119 98 12/27/21 17:19 98.0 F 104 H 18 197/126 97 12/27/21 16:20 100 H 17 201/125 98 12/27/21 16:11 110 H 23 183/116 97 12/27/21 16:05 112 H 23 183/116 99 12/27/21 16:01 114 H 18 187/122 99 12/27/21 15:59 110 H 33 H 187/122 99 12/27/21 15:57 106 H 11 L 187/122 100 12/27/21 15:55 97 H 27 H 187/122 98 12/27/21 15:53 95 H 24 187/122 12/27/21 15:52 101 H 37 H 187/122 12/27/21 15:51 100 H 25 H 191/127 12/27/21 15:49 102 H 25 H 191/127 12/27/21 15:47 103 H 26 H 191/127 12/27/21 15:45 103 H 20 191/127 12/27/21 15:43 103 H 19 191/127 12/27/21 15:42 103 H 23 191/127 94 12/27/21 15:41 104 H 29 H 191/120 12/27/21 15:39 106 H 27 H 191/120 12/27/21 15:37 101 H 28 H 191/120 12/27/21 15:35 97 H 27 H 191/120 12/27/21 15:33 100 H 33 H 191/120 12/27/21 15:31 98 H 26 H 181/111 12/27/21 15:29 97 H 25 H 181/111 12/27/21 15:27 95 H 20 181/111 98 12/27/21 15:25 92 H 29 H 181/111 97 12/27/21 15:23 90 28 H 181/111 12/27/21 15:22 91 H 37 H 181/111 12/27/21 15:21 94 H 22 185/112 98 12/27/21 15:20 91 H 37 H 185/112 91 12/27/21 15:18 97 H 18 183/116 98 12/27/21 15:16 102 H 14 183/116 99 12/27/21 15:14 95 H 16 183/116 98 12/27/21 15:12 96 H 26 H 183/116 98 12/27/21 15:10 96 H 17 183/116 98 12/27/21 15:08 99 H 17 183/116 97 12/27/21 15:06 89 24 188/105 99 12/27/21 15:01 93 H 18 183/116 98 12/27/21 14:59 100 H 13 183/116 99 12/27/21 14:57 102 H 13 183/116 99 12/27/21 14:55 95 H 19 183/116 98 12/27/21 14:53 92 H 19 183/116 98 12/27/21 14:51 97 H 18 183/116 98 12/27/21 14:49 94 H 15 183/116 98 12/27/21 14:47 88 19 183/116 98 12/27/21 14:45 90 18 183/116 99 12/27/21 14:43 87 25 H 183/116 99 12/27/21 14:42 85 35 H 183/116 99 12/27/21 14:41 90 21 190/142 99 12/27/21 14:39 90 21 190/142 98 12/27/21 14:37 90 20 190/142 99 12/27/21 14:35 91 H 38 H 190/142 99 12/27/21 14:33 90 17 190/142 99 12/27/21 14:31 92 H 18 190/142 99 12/27/21 14:29 93 H 21 190/142 100 12/27/21 14:27 92 H 16 190/142 100 12/27/21 14:25 88 33 H 190/142 98 12/27/21 14:23 91 H 17 190/142 99 12/27/21 14:22 93 H 18 190/142 94 12/27/21 14:21 93 H 12 194/128 99 12/27/21 14:19 94 H 19 194/128 98 12/27/21 14:17 96 H 14 194/128 99 12/27/21 14:15 95 H 15 194/128 97 12/27/21 14:13 92 H 28 H 194/128 99 12/27/21 14:11 95 H 16 194/128 98 12/27/21 14:09 95 H 17 194/128 98 12/27/21 14:07 91 H 21 194/128 97 12/27/21 14:01 97 H 15 180/136 97 12/27/21 13:59 103 H 24 180/136 100 12/27/21 13:57 100 H 15 180/136 99 12/27/21 13:55 101 H 16 180/136 99 12/27/21 13:53 101 H 20 180/136 99 12/27/21 13:51 102 H 19 180/136 99 12/27/21 13:49 96 H 19 180/136 99 12/27/21 13:47 93 H 22 180/136 98 12/27/21 13:45 91 H 15 180/136 98 12/27/21 13:43 95 H 28 H 180/136 99 12/27/21 13:42 97 H 27 H 180/136 98 12/27/21 13:41 101 H 19 177/120 99 12/27/21 13:39 94 H 26 H 177/120 98 12/27/21 13:37 95 H 20 177/120 98 12/27/21 13:35 94 H 17 177/120 99 12/27/21 13:33 95 H 25 H 177/120 98 12/27/21 13:31 89 14 177/120 95 12/27/21 13:29 91 H 25 H 177/120 98 12/27/21 13:27 88 11 L 177/120 98 12/27/21 13:25 91 H 37 H 177/120 98 12/27/21 13:23 88 28 H 177/120 96 12/27/21 13:22 88 24 177/120 99 12/27/21 13:21 85 25 H 188/105 96 12/27/21 13:19 82 24 178/116 99 12/27/21 13:17 86 20 178/116 92 12/27/21 13:15 81 28 H 178/116 97 12/27/21 13:13 80 20 178/116 96 12/27/21 13:11 79 18 178/116 97 12/27/21 13:09 84 14 178/116 99 12/27/21 13:07 85 23 178/116 97 12/27/21 13:05 96 H 16 178/116 98 12/27/21 13:04 97 H 20 178/116 98 12/27/21 13:03 99 H 13 193/137 96 12/27/21 12:54 94 H 22 186/118 96 12/27/21 12:53 96 H 29 H 190/131 98 12/27/21 12:38 109 H 26 H 188/105 94 12/27/21 12:36 99 H 24 188/105 96 12/27/21 12:34 97 H 20 188/105 95 12/27/21 12:32 97 H 19 188/105 96 12/27/21 12:30 93 H 16 188/105 97 12/27/21 12:28 95 H 20 188/105 98 12/27/21 12:26 92 H 22 188/105 94 12/27/21 12:24 88 31 H 188/105 98 12/27/21 12:22 96 H 23 188/105 94 12/27/21 12:21 94 H 30 H 188/105 94 12/27/21 12:20 109 H 26 H 93 12/27/21 12:16 96 H 24 159/134 97 12/27/21 12:15 98 H 25 H 95 12/27/21 12:13 100 H 22 96 12/27/21 12:06 101 H 15 159/134 12/27/21 12:00 106 H 22 181/112 94 12/27/21 11:56 104 H 32 H 181/112 94 - Physical Examination General: No Apparent Distress HEENT: Positive: EOMI, Normocephaly Neck: Negative: JVD/HJR Cardiac: Positive: Reg Rate and Rhythm, S1/S2, Systolic Murmur (2/6) Lungs: Positive: Decreased Breath Sounds (bases) Neuro: Positive: Grossly Intact Abdomen: Positive: Soft Skin: Negative: Rash Musculoskeletal: No Pain Extremities: Present: upper extr. pulses, warm. Absent: edema - Labs and Meds Comprehensive Metabolic Panel 12/27/21 12/28/21 Range/Units 11:16 04:16 Sodium 134 L (137-145) mmol/L Potassium 4.0 4.1 (3.6-5.0) mmol/L Chloride 98.6 (98-107) mmol/L Carbon Dioxide 24 (22-30) mmol/L BUN 11 (7-17) mg/dL Creatinine 0.7 (0.6-1.2) mg/dL Glucose 109 H (65-100) mg/dL Calcium 9.7 (8.4-10.2) mg/dL - Imaging and Cardiology EKG: report reviewed, image reviewed Echo: report reviewed - Telemetry EKG Rhythm: Sinus Rhythm - EKG Sinus rhythms and dysrhythmias: sinus tachycardia Repolarization changes or abnormalities: nonspecific abnormality, ST segment, and/or T wave
[2021-12-29] MEDS: hydrALAZINE 20 MG/1 ML INJ IV PRN (05:00)
[2021-12-29] MEDS: FUROSEMIDE 40 MG/4 ML INJ IV SCH (07:00)
[2021-12-29 08:05] LABS: BUN/Creatinine Ratio 17; Blood Urea Nitrogen 15 mg/dL (7-17); Calcium 9.7 mg/dL (8.4-10.2); Hemolysis Index 21
[2021-12-29] MEDS ORDERED: ALPRAZolam 0.5 MG TAB PO PRN (10:00)
[2021-12-29] MEDS ORDERED: SODIUM CHLORIDE 0.9% 500 ML 500 ML IV SCH (12:00)
[2021-12-29] MEDS: FAMOTIDINE 20 MG TAB PO SCH ×2 (12:14→21:45)
[2021-12-29] MEDS: METOPROLOL TARTRATE 50 MG TAB PO SCH ×2 (12:14→21:47)
[2021-12-29] MEDS: LISINOPRIL 40 MG TAB PO SCH (12:15)
--- NOTE | 2021-12-29 12:58 | Progress Note ---
Assessment and Plan Pt is a 46-year-old female with a hx of HTN (which she states she treats with alternative therapies) who presented with complaints of progressively worsening SOB x 3 days. 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 Plan: Patient appears near euvolemic on exam will stop Lasix IV and convert to Lasix 40 mg p.o. daily Continue Lopressor 50mg BID. Will be converted to Toprol XL prior to discharge and Lisinopril 40mg daily. Will plan for cardiac cath in the a.m. Patient to be n.p.o. after midnight Would benefit from outpatient Pulm referral as well. Plan of care discussed with patient who verbalized understanding and agreement Pt seen in conjunction with Dr. White, who agrees with the assessment and plan of care. - Patient Problems (1) COPD (chronic obstructive pulmonary disease) Current Visit: Yes Status: Acute (2) Acute respiratory failure Current Visit: Yes Status: Acute (3) Acute HFrEF (heart failure with reduced ejection fraction) Current Visit: Yes Status: Acute (4) Hypertensive urgency Current Visit: Yes Status: Acute (5) Mitral regurgitation Current Visit: Yes Status: Acute (6) Obesity (BMI 30.0-34.9) Current Visit: Yes Status: Acute (7) Severe pulmonary hypertension Current Visit: Yes Status: Acute (8) Tricuspid regurgitation Current Visit: Yes Status: Acute Subjective Date of service: 12/29/21 Principal diagnosis: Acute HFmrEF Interval history: Patient resting in bed in no acute distress. Patient reports improvement in respiratory status Sinus 70s on monitor Objective Vital Signs Temp Pulse Resp BP Pulse Ox 12/29/21 12:15 84 132/85 12/29/21 12:14 84 132/85 12/29/21 06:08 83 22 124/84 100 12/29/21 05:00 82 155/105 12/29/21 04:21 98.3 F 82 20 155/105 100 12/29/21 04:00 18 98 12/28/21 21:56 83 138/94 12/28/21 21:55 87 20 139/94 98 09/18/22 16:00 20 100 12/28/21 15:14 98.0 F 85 16 147/101 98 - Physical Examination General: No Apparent Distress HEENT: Positive: EOMI, Normocephaly Neck: Positive: trachea midline. Negative: JVD/HJR Cardiac: Positive: Reg Rate and Rhythm Lungs: Positive: Normal Breath Sounds Neuro: Positive: Grossly Intact Abdomen: Positive: Soft Skin: Negative: Rash Musculoskeletal: No Pain Extremities: Present: upper extr. pulses, warm. Absent: edema - Labs and Meds Comprehensive Metabolic Panel 12/29/21 Range/Units 05:06 Sodium 138 (137-145) mmol/L Potassium 3.9 (3.6-5.0) mmol/L Chloride 97.0 L (98-107) mmol/L Carbon Dioxide 26 (22-30) mmol/L BUN 15 (7-17) mg/dL Creatinine 0.9 (0.6-1.2) mg/dL Glucose 76 (65-100) mg/dL Calcium 9.7 (8.4-10.2) mg/dL - Imaging and Cardiology EKG: report reviewed, image reviewed Echo: report reviewed - Telemetry EKG Rhythm: Sinus Rhythm - EKG Sinus rhythms and dysrhythmias: sinus tachycardia Repolarization changes or abnormalities: nonspecific abnormality, ST segment, and/or T wave
--- NOTE | 2021-12-29 14:52 | Progress Note ---
Assessment and Plan Assessment and plan: #Acute systolic heart failure -TTE shows LVEF 40% -continue BB + lisinopril; titrate as needed -Strict I's/O, monitor urine output every shift -plan for Cardiac cath tomorrow, patient aware -Cardiology following, assistance appreciated #Acute hypoxic respiratory failure #Severe pulmonary hypertension -patient currently on 1L NC, has no oxygen requirement at baseline -will wean O2 as tolerated; home O2 evaluation ordered -TTE showed evidence of severe tricuspid regurgitation and pulmonary HTN -Pulmonology follow up outpatient with sleep study; will consider inpatient consult if patient clinical status does not improve #Hypertension #Hypertensive emergency-resolved -patient with history of HTN treated with natural remedies -patient agreeable to starting anti-hypertensive therapies -continue PRN hydralazine, lopressor and lisinopril at doses adjusted by Cardiology #Hyponatremia #Hypomagnesemia -will continue to replete and monitor magnesium levels #Obesity #Weight loss counseling #Exercise counseling - BMI 34.7 - Counseled patient on the importance of weight loss, incorporating exercise, and dietary changes (lean meats, fresh fruits and vegetables, and water intake). Patient expresses understanding. - Time: +15 min #Anxiety -per Patient history -xanax PRN #Advanced care planning -Disease education data, care plan discussed, diagnoses discussed, prognosis discussed, patient acknowledges understanding and agreement with care plan, +30 minutes. History Interval history: No acute events overnight. Patient reports having an episode this morning after blood draw where she felt like she was "drowning". It has since resolved. She's currently without chest pain and shortness of breath. We discussed the TTE findings and Cardiology recommendations. She is understanding. Hospitalist Physical - Physical exam Narrative exam: GENERAL: Well-developed well-nourished. In no acute distress. HEENT: Nasal cannula in place at 1 L/min. CHEST/LUNGS: CTAB on supplemental oxygen. HEART/CARDIOVASCULAR: RRR. No murmur, rubs or gallops appreciated. ABDOMEN: +BS. NT/ND. SKIN: No rashes noted. NEURO: No focal motor deficit. Follows all commands. MUSCULOSKELETAL: No joint effusion EXTREMITIES: No cyanosis, clubbing or edema. PSYCH: Cooperative. - Constitutional Vitals: Temp Pulse Resp BP Pulse Ox 98.3 F 84 22 132/85 100 12/29/21 04:21 12/29/21 12:15 12/29/21 06:08 12/29/21 12:15 12/29/21 06:08 General appearance: Present: mild distress, obese HEART Score - HEART Score Troponin: Troponin T < 0.010 ng/mL (0.00-0.029) 12/27/21 11:16 Results - Labs CBC & Chem 7: 12/27/21 11:16 12/29/21 05:06 Labs: Laboratory Last Values WBC 9.7 K/mm3 (4.5-11.0) 12/27/21 11:16 RBC 4.84 M/mm3 (3.65-5.03) 12/27/21 11:16 Hgb 14.4 gm/dl (10.1-14.3) H 12/27/21 11:16 Hct 43.7 % (30.3-42.9) H 12/27/21 11:16 MCV 90 fl (79-97) 12/27/21 11:16 MCH 30 pg (28-32) 12/27/21 11:16 MCHC 33 % (30-34) 12/27/21 11:16 RDW 15.0 % (13.2-15.2) 12/27/21 11:16 Plt Count 238 K/mm3 (140-440) 12/27/21 11:16 Lymph % (Auto) 29.7 % (13.4-35.0) 12/27/21 11:16 [place] % (Auto) 4.9 % (0.0-7.3) 12/27/21 11:16 Eos % (Auto) 2.2 % (0.0-4.3) 12/27/21 11:16 Baso % (Auto) Tank Operator 12/27/21 11:16 Lymph # (Auto) 2.9 K/mm3 (1.2-5.4) 12/27/21 11:16 [place] # (Auto) 0.5 K/mm3 (0.0-0.8) 12/27/21 11:16 Eos # (Auto) 0.2 K/mm3 (0.0-0.4) 12/27/21 11:16 Baso # (Auto) 0.1 K/mm3 (0.0-0.1) 12/27/21 11:16 Seg Neutrophils % 62.7 % (40.0-70.0) 12/27/21 11:16 Seg Neutrophils # 6.1 K/mm3 (1.8-7.7) 12/27/21 11:16 PT 13.4 Sec. (12.2-14.9) 12/27/21 11:16 INR 0.92 (0.87-1.13) 12/27/21 11:16 Sodium 138 mmol/L (137-145) 12/29/21 05:06 Potassium 3.9 mmol/L (3.6-5.0) 12/29/21 05:06 Chloride 97.0 mmol/L (98-107) L 12/29/21 05:06 Carbon Dioxide 26 mmol/L (22-30) 12/29/21 05:06 Anion Gap 19 mmol/L 12/29/21 05:06 BUN 15 mg/dL (7-17) 12/29/21 05:06 Creatinine 0.9 mg/dL (0.6-1.2) 12/29/21 05:06 Estimated GFR > 60 ml/min 12/29/21 05:06 BUN/Creatinine Ratio 17 % 12/29/21 05:06 Glucose 76 mg/dL (65-100) 12/29/21 05:06 Ketones Quantitative Negative (Negative) 12/27/21 11:16 Lactic Acid 1.60 mmol/L (0.7-2.0) 12/27/21 11:16 Calcium 9.7 mg/dL (8.4-10.2) 12/29/21 05:06 Magnesium 1.80 mg/dL (1.7-2.3) 12/29/21 05:06 Total Bilirubin 1.00 mg/dL (0.1-1.2) 12/27/21 11:16 AST 30 units/L (5-40) 12/27/21 11:16 ALT 30 units/L (7-56) 12/27/21 11:16 Alkaline Phosphatase 81 units/L (35-129) 12/27/21 11:16 Total Creatine Kinase 147 units/L (30-135) H 12/27/21 11:16 CK-MB (CK-2) 3.3 ng/mL (0.0-4.0) 12/27/21 11:16 CK-MB (CK-2) Rel Index 2.2 (0-4) 12/27/21 11:16 Troponin T < 0.010 ng/mL (0.00-0.029) 12/27/21 11:16 NT-Pro-B Natriuret Pep 1342 pg/mL (0-450) H 12/27/21 11:16 Total Protein 7.0 g/dL (6.3-8.2) 12/27/21 11:16 Albumin 4.4 g/dL (3.9-5) 12/27/21 11:16 Albumin/Globulin Ratio 1.7 % 12/27/21 11:16 Lipase 16 units/L (13-60) 12/27/21 11:16 TSH 1.780 mlU/mL (0.270-4.200) 12/27/21 13:58 Free T4 1.45 ng/dL (0.76-1.46) 12/27/21 13:58 Urine Color Yellow (Yellow) 12/27/21 11:56 Urine Turbidity Clear (Clear) 12/27/21 11:56 Specific [place] (Man) 1.005 (1.003-1.030) 12/27/21 11:56 Ur Protein (Man) 1+ mg/dL (Negative) 12/27/21 11:56 Ur Ketones (Man) Negative (Negative) 12/27/21 11:56 Ur Nitrite (Man) Negative (Negative) 12/27/21 11:56 Urine Bilirubin (Man) Negative (Negative) 12/27/21 11:56 Urine Ictotest Not Reportable 12/27/21 11:56 Leukocyte Esterase (Man) Negative (Negative) 12/27/21 11:56 Urine WBC (Auto) < 1.0 /HPF (0.0-6.0) 12/27/21 11:56 Urine RBC (Auto) 2.0 /HPF (0.0-6.0) 12/27/21 11:56 U Epithel Cells (Auto) 1.0 /HPF (0-13.0) 12/27/21 11:56 Urine RBC (Manual) 1+ (Negative) 12/27/21 11:56 Urine Mucus Few /HPF 12/27/21 11:56 Urine HCG, Qual Negative (Negative) 12/27/21 11:56 Urine Opiates Screen Negative 12/27/21 11:56 Urine Methadone Screen Negative 12/27/21 11:56 Ur Barbiturates Screen Negative 12/27/21 11:56 Ur Phencyclidine Scrn Negative 12/27/21 11:56 Ur Amphetamines Screen Negative 12/27/21 11:56 U Benzodiazepines Scrn Negative 12/27/21 11:56 Urine Cocaine Screen Negative 12/27/21 11:56 U Marijuana (THC) Screen Positive 12/27/21 11:56 Drugs of Abuse Note Disclamer 12/27/21 11:56 Jung/IV: Voiding Method Toilet Active Medications - Current Medications Current Medications: Generic Name Dose Route Start Last Admin Trade Name Freq PRN Reason Stop Dose Admin Acetaminophen 650 mg 12/27/21 14:30 Acetaminophen 325 Mg Tab PO Q4H PRN Pain MILD(1-3)/Fever >100.5/OLIVER Albuterol 2.5 mg 12/27/21 16:00 Albuterol 2.5 Mg/3 Ml Nebu IH Q4HRT PRN Shortness Of Breath Alprazolam 0.5 mg 12/29/21 10:00 12/29/21 10:30 Alprazolam 0.5 Mg Tab PO 0.5 mg Q8H PRN Administration Anxiety Famotidine 20 mg 12/27/21 22:00 12/29/21 12:14 Famotidine 20 Mg Tab PO 20 mg BID DEMETRIUS Administration Furosemide 40 mg 12/30/21 10:00 Furosemide 40 Mg Tab PO QDAY DEMETRIUS Hydralazine HCl 10 mg 12/27/21 14:30 12/29/21 05:00 Hydralazine 20 Mg/1 Ml Inj IV 10 mg Q8HR PRN Administration Hypertension Sodium Chloride 500 mls @ 50 mls/hr 12/29/21 12:00 12/29/21 12:12 Nacl 0.9% 500 Ml IV 12/29/21 21:59 50 mls/hr DIRECT DEMETRIUS Administration Lisinopril 40 mg 12/29/21 10:00 12/29/21 12:15 Lisinopril 40 Mg Tab PO 40 mg QDAY DEMETRIUS Administration Metoprolol Tartrate 50 mg 12/28/21 10:00 12/29/21 12:14 Metoprolol Tartrate 50 Mg Tab PO 50 mg BID DEMETRIUS Administration Morphine Sulfate 2 mg 12/27/21 15:00 Morphine 4 Mg/1 Ml Inj IV Q14H PRN Pain , Severe (7-10) Ondansetron HCl 4 mg 12/27/21 14:30 Ondansetron 4 Mg/2 Ml Inj IV Q8H PRN Nausea And Vomiting Oxycodone/Acetaminophen 1 tab 12/27/21 15:00 Oxycodone /Acetaminophen 5-325mg Tab PO Q6H PRN Pain, Moderate (4-6) Sodium Chloride 10 ml 12/27/21 22:00 12/29/21 12:10 Sodium Chloride 0.9% 10 Ml Flush Syringe IV 10 ml BID DEMETRIUS Administration Sodium Chloride 10 ml 12/27/21 15:00 Sodium Chloride 0.9% 10 Ml Flush Syringe IV PRN PRN LINE FLUSH
[2021-12-30 05:23] LABS: Blood Urea Nitrogen 13 mg/dL (7-17); Calcium 9.5 mg/dL (8.4-10.2); Hemolysis Index 12; INR 0.92 (0.87-1.13)
[2021-12-30 05:24] LABS: BUN/Creatinine Ratio 19
[2021-12-30 05:36] LABS: Basophils % (Auto) 0.5 % (0.0-1.8); Eosinophils # (Auto) 0.3 K/mm3 (0.0-0.4); Eosinophils % (Auto) 3.6 % (0.0-4.3); Hematocrit 52.9 % (30.3-42.9); Hemoglobin 16.9 gm/dl (10.1-14.3); Lymphocytes # (Auto) 2.5 K/mm3 (1.2-5.4); Lymphocytes % (Auto) 31.6 % (13.4-35.0); Mean Corpuscular HGB Conc 32 % (30-34); Mean Corpuscular Volume 91 fl (79-97); Monocytes # (Auto) 0.6 K/mm3 (0.0-0.8); Monocytes % (Auto) 7.7 % (0.0-7.3); Platelet Count 250 K/mm3 (140-440)
[2021-12-30] MEDS ORDERED: SODIUM CHLORIDE 0.9% 500 ML 500 ML ONE (06:11)
[2021-12-30] MEDS ORDERED: SODIUM CHLORIDE 0.9% 500 ML 500 ML IV SCH (07:00)
[2021-12-30] MEDS ORDERED: ASPIRIN EC 325 MG TAB PO SCH (07:30)
[2021-12-30] MEDS ORDERED: ASPIRIN EC 325 MG TAB PO ONE (07:36)
[2021-12-30] MEDS ORDERED: HEPARIN/NS 5000 UNIT/500ML 1,000 ML IR ONE (07:53)
[2021-12-30] MEDS ORDERED: VERAPAMIL 5 MG/2 ML INJ ONE (07:54)
[2021-12-30] MEDS ORDERED: HEPARIN 10,000 UNITS/10 ML VIAL ONE (07:54)
[2021-12-30] MEDS ORDERED: LIDOCAINE (2%) 20 MG/1 ML VIAL 20 ML MDV INFILTRATI ONE (07:54)
[2021-12-30] MEDS ORDERED: NITROGLYCERIN SYRINGE 3 ML ONE (07:55)
[2021-12-30] MEDS ORDERED: fentaNYL 100 MCG/2 ML INJ ONE (08:34)
[2021-12-30] MEDS ORDERED: MIDAZOLAM 2 MG/2 ML INJ ONE (08:34)
--- NOTE | 2021-12-30 09:37 | Cardiac Catherization Report ---
DATE OF SERVICE: 12/30/2021 CLINICAL INFORMATION: This is a 46-year-old female admitted for acute respiratory failure and found to have acute systolic heart failure, EF 40% is here for a left heart catheterization for ischemic evaluation of cardiomyopathy. A left heart catheterization was done with moderate sedation started at 8:51, finished at 9:06, 15 minutes of moderate sedation. DESCRIPTION OF PROCEDURE: Procedure was done via the right radial artery, sterile technique and local anesthesia. A 6-Mosotho radial sheath inserted. Left system with JL3.5 catheter. Left main is large, long and patent. LAD is a large caliber vessel, patent, moderate tortuosity. Diagonal 1, diagonal 2 small caliber was patent. Circumflex, large caliber vessel, goes into a large caliber OM2 that is patent. OM1 is small caliber was patent. RCA engaged with JR4 catheter to large caliber vessel, was patent. PDA, PLV are small caliber was patent. LV gram done in URDU and TRUJILLO view shows borderline normal LV function, EF 50%, LVEDP at 30 mmHg, LV is 157, aortic is 158/89. No gradient across the aortic valve on pullback. The 5-Mosotho catheters all taken over guidewire. A 6-Mosotho radial sheath was discontinued. Radial band applied. No hematoma, no bleeding. SUMMARY: Left main patent, LAD patent, circumflex patent. OM2 patent, RCA patent, normal LV function, elevated left end-diastolic pressure. TID: [id number] RECEIPT: [id number] [facility]
--- NOTE | 2021-12-30 09:40 | Electrocardiograph Report ---
[facility] Test Date: 2021-12-30 Test Time: 06:23:59 Pat Name: HARESH MCKENZIE Department: Room: A392 1 Gender: F Career Placement Specialist: GIANFRANCO : 1975 Requested By: TONI TEAGUE Order Number: [id number] Reading MD: Meño White Measurements Intervals [place] Rate: 80 P: 19 AR: 155 QRS: -23 QRSD: 93 T: 9 QT: 378 QTc: 435 Interpretive Statements Sinus rhythm Probable left atrial enlargement Left ventricular hypertrophy Borderline T abnormalities, diffuse leads Compared to ECG 12/27/2021 11:06:47 Left ventricular hypertrophy now present T-wave abnormality now present Sinus tachycardia no longer present Electronically Signed On 12-30-2021 9:40:06 EDT by Meño White
[2021-12-30] MEDS ORDERED: HYDROcodone/ACETAMINOPHEN 5-325 MG TAB PO PRN (10:00)
[2021-12-30] MEDS ORDERED: traMADol 50 MG TAB PO PRN (10:00)
[2021-12-30] MEDS ORDERED: FUROSEMIDE 40 MG TAB PO SCH ×2 (10:00)
[2021-12-30 11:32] VITALS: BP 132/84
--- NOTE | 2021-12-30 11:45 | Progress Note ---
Assessment and Plan Pt is a 46-year-old female with a hx of HTN (which she states she treats with alternative therapies) who presented with complaints of progressively worsening SOB x 3 days. 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 Cardiac cath 12/30/2021-left main pain, LAD pain, circumflex pain. OM 2 patent, RCA pain, normal LV function. Elevated left end-diastolic pressure Plan: Patient for cardiac cath this a.m. and found to have normal coronaries. Furthermore patient's LV function normalized Will decrease to Lasix 40 mg p.o. daily Initiate aspirin, statin Continue Lopressor 50mg BID and Lisinopril 40mg daily. Plan of care discussed with patient who verbalized understanding and agreement Cardiac status otherwise stable for discharge Patient has a follow-up appointment with Dr. White, [facility] financial assistance specialist, on 02/05/2022 at 11 AM in our [place] office. Phone #[phone] Pt seen in conjunction with Dr. White, who agrees with the assessment and plan of care. - Patient Problems (1) COPD (chronic obstructive pulmonary disease) Current Visit: Yes Status: Acute (2) Acute respiratory failure Current Visit: Yes Status: Acute (3) Acute HFrEF (heart failure with reduced ejection fraction) Current Visit: Yes Status: Acute (4) Hypertensive urgency Current Visit: Yes Status: Acute (5) Mitral regurgitation Current Visit: Yes Status: Acute (6) Obesity (BMI 30.0-34.9) Current Visit: Yes Status: Acute (7) Severe pulmonary hypertension Current Visit: Yes Status: Acute (8) Tricuspid regurgitation Current Visit: Yes Status: Acute Subjective Date of service: 12/30/21 Principal diagnosis: Acute HFmrEF Interval history: Patient for cardiac cath this a.m. Not currently on monitor however previously was sinus 70s on monitor Objective Vital Signs Temp Pulse Resp BP Pulse Ox 12/30/21 11:30 73 14 132/84 93 12/30/21 11:00 73 19 135/89 95 12/30/21 10:30 69 18 148/98 95 12/30/21 10:00 75 26 H 136/94 99 12/30/21 09:45 68 22 136/103 99 12/30/21 09:30 81 14 139/95 95 12/30/21 09:16 98.1 F 80 10 L 138/84 99 12/30/21 06:34 98.8 F 84 20 157/101 96 12/30/21 04:00 16 99 12/30/21 00:51 98 12/29/21 21:47 75 149/96 12/29/21 12:15 84 132/85 12/29/21 12:14 84 132/85 - Physical Examination General: No Apparent Distress HEENT: Positive: EOMI, Normocephaly Neck: Positive: trachea midline. Negative: JVD/HJR Cardiac: Positive: Reg Rate and Rhythm Lungs: Positive: Normal Breath Sounds Neuro: Positive: Grossly Intact Abdomen: Positive: Soft Skin: Negative: Rash Musculoskeletal: No Pain Extremities: Present: upper extr. pulses, warm. Absent: edema - Labs and Meds Coagulation 12/30/21 Range/Units 04:44 PT 13.3 (12.2-14.9) Sec. INR 0.92 (0.87-1.13) CBC 12/30/21 Range/Units 04:44 WBC 8.0 (4.5-11.0) K/mm3 RBC 5.80 H (3.65-5.03) M/mm3 Hgb 16.9 H (10.1-14.3) gm/dl Hct 52.9 H D (30.3-42.9) % Plt Count 250 (140-440) K/mm3 Lymph # (Auto) 2.5 (1.2-5.4) K/mm3 [place] # (Auto) 0.6 (0.0-0.8) K/mm3 Eos # (Auto) 0.3 (0.0-0.4) K/mm3 Baso # (Auto) 0.0 (0.0-0.1) K/mm3 Comprehensive Metabolic Panel 12/30/21 Range/Units 04:44 Sodium 136 L (137-145) mmol/L Potassium 4.0 (3.6-5.0) mmol/L Chloride 101.6 (98-107) mmol/L Carbon Dioxide 26 (22-30) mmol/L BUN 13 (7-17) mg/dL Creatinine 0.7 (0.6-1.2) mg/dL Glucose 95 (65-100) mg/dL Calcium 9.5 (8.4-10.2) mg/dL - Imaging and Cardiology EKG: report reviewed, image reviewed Echo: report reviewed - Telemetry EKG Rhythm: Sinus Rhythm - EKG Sinus rhythms and dysrhythmias: sinus tachycardia Repolarization changes or abnormalities: nonspecific abnormality, ST segment, and/or T wave
--- NOTE | 2021-12-30 12:07 | Discharge Summary ---
Providers - Providers Date of Admission: 12/27/21 14:34 Date of discharge: 12/30/21 Attending physician: JOSE MÁRQUEZ MD 12/27/21 13:42 Consult to Physician [CONS] Routine Comment: Consulting Provider: TOSHIA CENTENO Physician Instructions: Reason For Exam: chf 12/30/21 09:10 Consult to Cardiac Rehabilitation [CONS] Routine Reason For Exam: Cardiac Rehab Evaluation Primary care physician: MUFFLER TENDER Hospitalization Reason for admission: Hypertensive emergency, acute hypoxic respiratory failure Condition: Fair Pertinent studies: Reviewed. Procedures: Left heart catheterization (12/30/2021). Hospital course: The patient is a 46 YO Female with HTN, Medication Noncompliance, Obesity, Mild Intermittent Asthma, Diet Controlled DM, Metabolic Syndrome presents ED for evaluation. Patient reports "it is hard to breathe". Patient states that she had experienced shortness of breath of the past 1 week with worsening symptoms over the past 3 days. Patient knowledges increased use of nebulizer therapy without relief. Patient acknowledges decreased exercise tolerance, dyspnea on exertion, dyspnea at rest, orthopnea, paroxysmal nocturnal dyspnea, lower extremity edema, and 7 pound weight gain over the past 3 days. Patient transported [facility] via private vehicle for further care and evaluation of the aforementioned symptoms. The patient was seen and evaluated in the emergency department. All lab and imaging studies reviewed. Patient found to have a blood pressure 218/143 mmHg which is consistent with hypertensive emergency. Patient also found to have clinical symptoms consistent with CHF decompensation, as well as hyponatremia. Patient initiated on IV antihypertensive therapy with mild improvement in symptoms. Patient admitted to telemetry due to increased risk of worsening symptoms and for medical stabilization. Patient initiated on CHF protocol. Cardiology team consulted in ED. patient underwent IV diuresis until she was euvolemic. Patient underwent TTE (12/27/2021) revealing EF 40% with elevated left atrial pressure, moderately dilated LA, moderate to severe mitral regurgitation, severe tricuspid regurg, and severe pulmonary hypertension with RVSP >60 mmHg. Cardiology performed left heart catheterization (12/30/2021) that was relatively unremarkable with return of normal LV function. Patient likely had a reduction in her EF secondary to hypertensive emergency. Patient will continue with medical management, and the patient will follow-up with Dr. White on 02/05/2022 at 11 AM in the [place] office. Patient is medically clear for discharge. Disposition: HOME / SELF CARE / HOMELESS Final Discharge Diagnosis (Prints w/discharge instructions): Acute systolic heart failure, hypertensive emergency, acute hypoxic respiratory failure, severe pulmonary hypertension, hypertension, hyponatremia, hypomagnesemia, obesity, anxiety. Time spent for discharge: 45 min Core Measure Documentation - Palliative Care Palliative Care/ Comfort Measures: Not Applicable - Core Measures Any of the following diagnoses?: heart failure - Heart Failure Discharge Requirements SUSANA/ARB for LVSD if EF <40%: Yes Beta mary at discharge: Yes Exam - Constitutional Vitals: Temp Pulse Resp BP Pulse Ox 98.1 F 73 14 132/84 93 12/30/21 09:16 12/30/21 11:30 12/30/21 11:30 12/30/21 11:30 12/30/21 11:30 General appearance: Present: no acute distress, well-nourished, obese - EENT Eyes: Present: PERRL, EOM intact ENT: hearing intact, clear oral mucosa, dentition normal - Neck Neck: Present: supple, normal ROM - Respiratory Respiratory effort: normal Respiratory: bilateral: CTA - Cardiovascular Rhythm: regular Heart Sounds: Present: S1 & S2 - Extremities Extremities: no ischemia, pulses intact, pulses symmetrical, No edema, normal temperature, normal color Peripheral Pulses: within normal limits - Abdominal General gastrointestinal: Present: soft, non-tender, non-distended, normal bowel sounds Female genitourinary: Present: deferred - Rectal Rectal Exam: deferred - Integumentary Integumentary: Present: clear, warm, dry - Musculoskeletal Musculoskeletal: strength equal bilaterally - Psychiatric Psychiatric: appropriate mood/affect, intact judgment & insight, memory intact, cooperative - Neurologic Neurologic: CNII-XII intact, moves all extremities - Allied Health Allied health notes reviewed: nursing Plan Activity: advance as tolerated Diet: low salt Additional Instructions: The patient is a 46 YO Female with HTN, Medication Noncompliance, Obesity, Mild Intermittent Asthma, Diet Controlled DM, Metabolic Syndrome presents ED for evaluation. Patient reports "it is hard to breathe". Patient states that she had experienced shortness of breath of the past 1 week with worsening symptoms over the past 3 days. Patient knowledges increased use of nebulizer therapy without relief. Patient acknowledges decreased exercise tolerance, dyspnea on exertion, dyspnea at rest, orthopnea, paroxysmal nocturnal dyspnea, lower extremity edema, and 7 pound weight gain over the past 3 days. Patient transported [facility] via private vehicle for further care and evaluation of the aforementioned symptoms. The patient was seen and evaluated in the emerg ency department. All lab and imaging studies reviewed. Patient found to have a blood pressure 218/143 mmHg which is consistent with hypertensive emergency. Patient also found to have clinical symptoms consistent with CHF decompensation, as well as hyponatremia. Patient initiated on IV antihypertensive therapy with mild improvement in symptoms. Patient admitted to telemetry due to increased risk of worsening symptoms and for medical stabilization. Patient initiated on CHF protocol. Cardiology team consulted in ED. patient underwent IV diuresis until she was euvolemic. Patient underwent TTE (12/27/2021) revealing EF 40% with elevated left atrial pressure, moderately dilated LA, moderate to severe mitral regurgitation, severe tricuspid regurg, and severe pulmonary hypertension with RVSP >60 mmHg. Cardiology performed left heart catheterization (12/30/2021) that was relatively unremarkable with return of normal LV function. Patient likely had a reduction in her EF secondary to hypertensive emergency. Patient will continue with medical management, and the patient will follow-up with Dr. White on 02/05/2022 at 11 AM in the [place] office. Patient is medically clear for discharge. Care Plan Goals: Patient is medically clear for discharge. Assessment: The patient is a 46 YO Female with HTN, Medication Noncompliance, Obesity, Mild Intermittent Asthma, Diet Controlled DM, Metabolic Syndrome presents ED for evaluation. Patient reports "it is hard to breathe". Patient states that she had experienced shortness of breath of the past 1 week with worsening symptoms over the past 3 days. Patient knowledges increased use of nebulizer therapy without relief. Patient acknowledges decreased exercise tolerance, dyspnea on exertion, dyspnea at rest, orthopnea, paroxysmal nocturnal dyspnea, lower extremity edema, and 7 pound weight gain over the past 3 days. Patient transported [facility] via private vehicle for further care and evaluation of the aforementioned symptoms. The patient was seen and evaluated in the emergency department. All lab and imaging studies reviewed. Patient found to have a blood pressure 218/143 mmHg which is consistent with hypertensive emergency. Patient also found to have clinical symptoms consistent with CHF decompensation, as well as hyponatremia. Patient initiated on IV antihypertensive therapy with mild improvement in symptoms. Patient admitted to telemetry due to increased risk of worsening symptoms and for medical stabilization. Patient initiated on CHF protocol. Cardiology team consulted in ED. patient underwent IV diuresis until she was euvolemic. Patient underwent TTE (12/27/2021) revealing EF 40% with elevated left atrial pressure, moderately dilated LA, moderate to severe mitral regurgitation, severe tricuspid regurg, and severe pulmonary hypertension with RVSP >60 mmHg. Cardiology performed left heart catheterization (12/30/2021) that was relatively unremarkable with return of normal LV function. Patient likely had a reduction in her EF secondary to hypertensive emergency. Patient will continue with medical management, and the patient will follow-up with Dr. White on 02/05/2022 at 11 AM in the [place] office. Patient is medically clear for discharge. Follow up with: NINA LOMELI MD [Staff Physician] - 7 Days ARMAND WHITE MD [Staff Physician] - 02/05/22 11:00 am Forms: Work/School Release Form Prescriptions: AtorvaSTATin [Lipitor] 40 mg PO QHS #30 tablet Aspirin [Aspirin BABY CHEW TAB] 81 mg PO QDAY #30 tab.chew Furosemide [Lasix TAB] 20 mg PO QDAY #30 tablet Metoprolol [Lopressor TAB] 50 mg PO BID #60 tablet lisinopriL [Zestril TAB] 40 mg PO QDAY #30 tablet
[2021-12-30] MEDS: LISINOPRIL 40 MG TAB PO SCH (12:24)
[2021-12-30] MEDS: FAMOTIDINE 20 MG TAB PO SCH (12:24)
[2021-12-30] MEDS: METOPROLOL TARTRATE 50 MG TAB PO SCH (12:25)
[2021-12-31] MEDS ORDERED: ASPIRIN 81 MG TAB CHEW PO SCH (10:00)
--- NOTE | 2021-12-31 13:59 | Electrocardiograph Report ---
[facility] Test Date: 2021-12-27 Test Time: 11:06:47 Pat Name: HARESH MCKENZIE Department: Room: A392 Gender: F Master Brewer: AISHA : 1975 Requested By: EVA GUZMAN Order Number: [id number] Reading MD: Zachariah Sarmiento Measurements Intervals [place] Rate: 101 P: 84 GA: 150 QRS: 45 QRSD: 96 T: -75 QT: 353 QTc: 459 Interpretive Statements Sinus tachycardia Left atrial enlargement Diffuse T wave inversions, consider inferolateral Compared to ECG 10/04/2020 13:14:58 No significant change Electronically Signed On 12-31-2021 13:58:41 EDT by Zachariah Sarmiento
== END 2021-12-30 15:52 | disposition home or self-care (01) | DRG 286 ==
LOC: ED 10:28 → 3A 14:34
PROVIDERS: ADMIT Internal Medicine; ATTEND Student in an Organized Health Care Education/Training Program
PROC: 4A023N7 Measurement of Cardiac Sampling and Pressure, Left Heart, Percutaneous Approach (ICD-10-PCS; principal; 2021-12-30)
PROC: B2151ZZ Fluoroscopy of Left Heart using Low Osmolar Contrast (ICD-10-PCS; 2021-12-30)
PROC: B2111ZZ Fluoroscopy of Multiple Coronary Arteries using Low Osmolar Contrast (ICD-10-PCS; 2021-12-30)
DX: I11.0 Hypertensive heart disease with heart failure (principal); I50.21 Acute systolic (congestive) heart failure; J96.01 Acute respiratory failure with hypoxia; I16.1 Hypertensive emergency; E87.1 Hypo-osmolality and hyponatremia; I42.9 Cardiomyopathy, unspecified; E66.9 Obesity, unspecified; I27.20 Pulmonary hypertension, unspecified; E83.42 Hypomagnesemia; Z91.19 Patient's noncompliance with other medical treatment and regimen; Z68.34 Body mass index [BMI] 34.0-34.9, adult; Z83.3 Family history of diabetes mellitus; Z82.49 Family history of ischemic heart disease and other diseases of the circulatory system; J45.909 Unspecified asthma, uncomplicated; E88.81 Metabolic syndrome and other insulin resistance; Z95.1 Presence of aortocoronary bypass graft; Z98.61 Coronary angioplasty status; Z71.3 Dietary counseling and surveillance; F41.9 Anxiety disorder, unspecified; I08.1 Rheumatic disorders of both mitral and tricuspid valves
CPT/HCPCS: 36415; 71045; 80048; 80053; 80307; 81001; 81025; 82010; 82140; 82550; 82553; 82962; 83690; 83735; 83880; 84439; 84443; 84484; 85025; 85610; 86850; 86900; 86901; 93005; 93306; 93458; 94644; 94760; 96374; 96375; 99285; G0378; J1815; J3490; C1894; C8929; J0360; J1644; J1940; J2250; J2405; J2930; J3010; J3475; J7040; Q9967